=== PATIENT | female | born 1940 | race Caucasian/White ===

== ENCOUNTER 2022-09-29 10:27 | Inpatient (IN) | payer MEDICARE, OTHER, SELFPAY ==
--- NOTE | 2022-09-29 | DI.RAD_ITS ---
Exam(s) XR FEMUR RT EXAM: XR FEMUR RT CLINICAL HISTORY: complete femur xrs for hip fx sx. TECHNIQUE: 2D digital imaging was performed. AP and lateral views COMPARISON: CR,XR XR PELVIS AP from 09/29/2022 FINDINGS: BONES: Comminuted intertrochanteric fracture of the right femur with varus angulation. No additional fractures are seen distally in the femur. no bony destructive lesion is seen. Degenerative changes are noted at the knee. SOFT TISSUE: Normal. IMPRESSION: Comminuted intertrochanteric fracture of the right femur. DATA REPOSITORY: RADIATION DOSE DELIVERED:
--- NOTE | 2022-09-29 | DI.RAD_ITS ---
Exam(s) XR PORTABLE CHEST AP EXAM: XR PORTABLE CHEST AP CLINICAL HISTORY: Pre-op TECHNIQUE: 2D digital imaging was performed. COMPARISON: No exams were available for comparison FINDINGS: LUNGS: Clear. No pleural abnormality seen. HEART: Ultc-lp-ropnpycm enlargement of the cardiac silhouette. AORTA: Normal diameter. BONES: Degenerative changes, unremarkable for age. Soft tissues: Unremarkable. IMPRESSION: No acute findings. DATA REPOSITORY: RADIATION DOSE DELIVERED:
--- NOTE | 2022-09-29 10:59 | DI.RAD_ITS ---
Exam(s) XR PELVIS AP EXAM: XR PELVIS AP CLINICAL HISTORY: Rt hip fx. TECHNIQUE: 2D digital imaging was performed. COMPARISON: No exams were available for comparison FINDINGS: BONES: Acute intertrochanteric fracture of the right femur. The lesser trochanter is fractured as a separate component. There is some comminution at the greater trochanter. No additional fractures id entified.. No bony destructive lesion is seen. JOINTS: No dislocation present. Mild hip joint space narrowing is present. Acetabular spurring. SOFT TISSUE: Normal. IMPRESSION: Comminuted intertrochanteric fracture of the right femur. DATA REPOSITORY: RADIATION DOSE DELIVERED:
[2022-09-29 12:36] VITALS: BP 148/92; PULSE 111; RESP 18; TEMP 36.7; O2SAT 97
--- NOTE | 2022-09-29 13:47 | W.PM.HP.N ---
Date of service: 09/29/22 Time of Service: 13:47 Assessment and Plan Assessment and plan (1) Closed intertrochanteric fracture of right hip: Status: Acute Assessment and plan: Mechanical fall from standing height. Orthopedics consulted and have ordered xrays. Xray report from [facility] in chart. Pain control with scheduled IV acetaminophen, prn oxycodone. Repair planned for 729 tomorrow. (2) Atrial fibrillation: Assessment and plan: HOlding Eliquis for surgery. Cont metoprolol for rate control. Telemetry. (3) Essential hypertension: Status: Acute Assessment and plan: Holding amlodipine and losartan. Cont metoprolol. Monitor. (4) HLD (hyperlipidemia): Status: Acute Assessment and plan: Cont atorvastatin. (5) CKD (chronic kidney disease): Status: Chronic Assessment and plan: Likely acute on chronic. Pt has little appetite or thirst. LR at 100ml/hr for 1L. Creatinine in AM. (6) Discharge planning issues: Status: Acute Assessment and plan: DNR/DNI Anticipating SNF need post-op. History of Present Illness History of Present Illness Chief Complaint: Right hip pain Narrative: This is an 82 yo female with a PMH of chronic afib on Eliquis, HTN, HLD. On the evening of 09/28/22 she incurred a mechanical fall in her kitchen. She stated she fell more on her back than on her right side. She was then unable to bear wt. on the right hip. EMS called and she initially presented to [facility] for evaluation. There, she was found to have a right intertrochanteric femur fx. She denied hitting her head. No syncope. Covid, influenza and RSV were negative. Lytes normal. Creatinine 1.67. INR 1.03. WBC count 15.9. Hgb 12.5. Platelets 159. Presenting VS: BP 149/87 RR 20 T 36.9 HR 125. A dose of IV metoprolol given in the [facility] ED. Transferred to [facility] for surgical repaired that is planned for 729 on 09/30. Review of Systems All systems reviewed & are unremarkable except as noted in HPI and below PFSH All Active Problems (Updated 09/29/22 @ 14:52 by Matt Arellano MD) Discharge planning issues (Acute) CKD (chronic kidney disease) (Chronic) HLD (hyperlipidemia) (Acute) Essential hypertension (Acute) Closed intertrochanteric fracture of right hip (Acute 09/28/22) Medical History Atrial fibrillation Basal cell carcinoma Fracture of left ankle History of cardioversion Melanoma Surgical History Cataract extraction status, left eye Cataract extraction status, right eye H/O: hysterectomy History of left oophorectomy S/P bilateral breast lumpectomy Social History Smoking/Tobacco Use Status: Never Smoking risk assessment performed?: Yes Meds Allergies and Home Medications Allergies Allergy/AdvReac Type Severity Reaction Status Date / Time No Known Allergies Allergy Unverified 09/29/22 13:39 Home Medications Medication Instructions Recorded Confirmed Type allopurinol 300 mg tablet 300 mg PO DAILY 09/29/22 09/29/22 History amlodipine 5 mg tablet (Norvasc) 5 mg PO DAILY 09/29/22 09/29/22 History apixaban 2.5 mg tablet 2.5 mg PO BID 09/29/22 09/29/22 History atorvastatin 10 mg tablet (Lipitor) 10 mg PO QPM 09/29/22 09/29/22 History calcium carbonate 500 mg-vitamin 1 tab PO QDAY 09/29/22 09/29/22 History D3 10 mcg (400 unit) tablet (Calcium 500 With D) losartan 50 mg tablet (Cozaar) 50 mg PO DAILY 09/29/22 09/29/22 History metoprolol succinate 25 mg 25 mg PO DAILY 09/29/22 09/29/22 History tablet,extended release 24 hr multivit with 1 tab PO QDAY 09/29/22 09/29/22 History oqyiuiet-urzv-GA-lutein 8 mg iron-400 mcg-300 mcg tablet (Centrum Silver Women) Exam Narrative Exam Narrative: Pleasant 82 yo female. Conversant. Const General: cooperative and no acute distress Nutritional Appearance: overweight Orientation: alert and oriented x3 Eyes General: appearance normal, both eyes and all related structures Sclera: sclerae normal Resp Effort & Inspection: normal respiratory effort Auscultation: clear to auscultation bilaterally Cardio Rate: tachycardic Rhythm: abnormal rhythm irregularly irregular GI Inspection: non-distended Palpation: soft and nontender Skin General skin exam: no rashes or lesions noted Neuro General: no focal motor deficits (R hip with limited motion d/t pain. ) Cranial Nerves: facial strength normal Cognition: normal cognition Speech: speech normal Extrem General: no pedal edema and no calf tenderness Right lower extremity: hip/thigh (Right LE exteranlly rotated and forshortened. ) Psych Appearance: grossly normal Mental Status: mental status grossly normal Speech and Movement: speech and movement normal Mood: congruent mood Affect: normal affect Results Last Vital Signs Temp 36.7 C 09/29/22 12:36 Pulse 111 H 09/29/22 12:36 Resp 18 09/29/22 12:36 BP 148/92 H 09/29/22 12:36 Pulse Ox 97 09/29/22 12:36
[2022-09-29] MEDS: ACETAMINOPHEN 1,000 MG/100 ML BTL 400 MG IVPB ×2 (13:56→22:25)
[2022-09-29] MEDS: Metoprolol CR 25 MG TABCR PO (13:56)
[2022-09-29 14:36] VITALS: PULSE 103
[2022-09-29 14:46] VITALS: BP 124/77; PULSE 90; RESP 17; TEMP 36.8; O2SAT 96
--- NOTE | 2022-09-29 15:23 | INITIAL_ITS ---
- If Service Date Differs Date of service: 09/29/22 Time of Service: 15:23 Care Management Initial Assess REASON FOR HOSPITALIZATION:: Right Femoral Intertrochanteric Fracture. PAST MEDICAL HISTORY/PAST SURGICAL HISTORY:: All Active Problems: Discharge planning issues (Acute), CKD (chronic kidney disease) (Chronic), HLD (hyperlipidemia) (Acute), Essential hypertension (Acute), and Closed intertrochanteric fracture of right hip (Acute 09/28/22). Medical History: Atrial fibrillation, Basal cell carcinoma, Fracture of left ankle, History of cardioversion, and Melanoma. Surgical History: Cataract extraction status, left eye, Cataract extraction status, right eye, H/O: hysterectomy, History of left oophorectomy, and. S/P bilateral breast lumpectomy. PREVIOUS FUNCTIONAL STATUS/SOCIAL/FAMILY SUPPORTS:: Val lives alone in an apartment. Her daughter Abbi and her son-in-law live next door and are supportive of patient. Val has two other children but they do not live locally. Val drives and is independent at baseline. CURRENT FUNCTIONAL STATUS:: Val is lying in bed when CM comes to meet with her. Her daughter, Abbi, is present in the room. Val shares her evans rgery is scheduled for 7:30 on Friday morning. She further states she has heard a lot of good things about our orthopedic surgeons. ADVANCE DIRECTIVES:: Patient reports she has one on file with [facility]; daughter Abbi Olson is appointed as Health Care Agent. Has patient been provided with info about the portal/API?: Yes Did the patient sign up for the portal?: Yes CODE STATUS:: Full Code INSURANCE COVERAGE / FINANCIAL ISSUES:: [employer] and Medicare. CURRENT HOME/COMMUNITY SERVICES/EQUIPMENT:: No home/community services. Patient has hiking sticks, FWW, and wears eyeglasses. PRIMARY CARE PHYSICIAN:: Paty Canales MD ([facility]) POTENTIAL DISCHARGE NEEDS:: Follow up appointments with PCP, surgeon and potential home health services vs short term rehab. PATIENT/FAMILY EDUCATION NEEDS:: Review of discharge instructions including medications, limitations and follow up plan of care; discuss Ask Me Three and self management. ANTICIPATED BARRIERS TO DISCHARGE:: None identified at this time. TRANSPORTATION:: To be determined based on disposition. PLAN:: Val is undergoing surgery tomorrow morning to repair an intertrochanteric fracture of her right femur. Post surgery, PT will evaluate her ability to manage at home and will make recommendations for either new home health services or short-term rehab. CM will continue to follow.
[2022-09-29] MEDS: Lactated Ringers 1,000 ML 100 ML IV (15:36)
[2022-09-29 16:54] VITALS: PULSE 83
[2022-09-29] MEDS: oxyCODONE 5 MG TAB 2.5 MG PO (17:45)
--- NOTE | 2022-09-29 18:42 | DI.VRAD_ITS ---
PROCEDURE INFORMATION: Exam: XR Pelvis Exam date and time: 09/29/2022 5:59 PM Age: 82 years old Clinical indication: Other: Right hip FX TECHNIQUE: Imaging protocol: Radiologic exam of the pelvis. Views: 1 or 2 view. COMPARISON: No relevant prior studies available. FINDINGS: Bones/joints: Comminuted right femoral inter trochanteric fracture. No dislocation Soft tissues: Unremarkable. IMPRESSION: Comminuted right femoral intertrochanteric fracture without dislocation Dictated and Authenticated by: Seymour Goddard MD. Ordering:ISIDRO Ashton MD
--- NOTE | 2022-09-29 18:42 | DI.VRAD_ITS ---
PROCEDURE INFORMATION: Exam: XR Right Femur Exam date and time: 09/29/2022 6:01 PM Age: 82 years old Clinical indication: Other: Right hip FX TECHNIQUE: Imaging protocol: Radiologic exam of the Right femur. Views: 2 views. COMPARISON: CR XR PELVIS AP 09/29/2022 5:59 PM FINDINGS: Bones/joints: Comminuted intertrochanteric fracture without dislocation. Distal femur and visualized knee are grossly intact. Severe degenerative changes in the right knee Soft tissues: Soft tissue swelling suspected IMPRESSION: Comminuted intertrochanteric fracture as noted without dislocation Dictated and Authenticated by: Seymour Goddard MD. Ordering:ISIDRO Ashton MD
--- NOTE | 2022-09-29 18:42 | DI.VRAD_ITS ---
PROCEDURE INFORMATION: Exam: XR Chest Exam date and time: 09/29/2022 6:24 PM Age: 82 years old Clinical indication: Other: Pre op, right hip FX TECHNIQUE: Imaging protocol: Radiologic exam of the chest. Views: 1 view. COMPARISON: No relevant prior studies available. FINDINGS: Lungs: Chronic interstitial prominence. No consolidation. Pleural spaces: No pleural effusion. No pneumothorax. Heart/Mediastinum: Moderate cardiomegaly. Bones/joints: Unremarkable. IMPRESSION: No acute findings. Moderate cardiomegaly Dictated and Authenticated by: Seymour Goddard MD. Ordering:TOSHA Gutierrez MD
[2022-09-29 19:40] VITALS: PULSE 97
[2022-09-29] MEDS: Ondansetron 4 MG/2 ML VIAL IVP (20:28)
[2022-09-29] MEDS: MORPHine 2 MG/ML SYR IVP (20:29)
[2022-09-29] MEDS: Normal Saline Flush 10 ML SYR (21:31)
[2022-09-29 23:21] VITALS: BP 123/73; PULSE 95; RESP 18; TEMP 36.7; O2SAT 97
[2022-09-30] VITALS (19 sets, daily range): BP systolic 105–149; BP diastolic 63–81; PULSE 57–107; RESP 11–18; TEMP 35.5–37.1; O2SAT 93–98; BMI 30.4
[2022-09-30] MEDS: Ondansetron 4 MG/2 ML VIAL IVP ×3 (02:29→17:42)
[2022-09-30] MEDS: MORPHine 2 MG/ML SYR IVP (02:29)
[2022-09-30] MEDS: Normal Saline Flush 10 ML SYR ×2 (02:30→13:19)
[2022-09-30 03:11] LABS: Bilirubin Negative (Negative); Blood Negative (Negative); Clarity Clear (Clear); Glucose Negative (Negative); Ketones Negative (Negative); Leukocyte Esterase Negative (Negative); Nitrite Negative (Negative); Specific Gravity >= 1.030 (1.005-1.025); Urobilinogen 0.2 EU/dL (Up TO 0.2)
[2022-09-30] MEDS: Lactated Ringers 1,000 ML 100 ML IV ×2 (05:11→18:06)
[2022-09-30] MEDS: ACETAMINOPHEN 1,000 MG/100 ML BTL 400 MG IVPB (06:26)
[2022-09-30 06:28] LABS: Abs Immature Grans 0.02 10^3/uL (0.0-0.06); Absolute Basophil Count 0.02 10^3/uL (0.0-0.2); Absolute Lymphocyte Count 1.77 10^3/uL (1.2-3.4); Absolute Neutrophil Count 6.42 10^3/uL (1.2-6.7); Basophils % 0.2; HCT 29.9 % (36.0-46.0); HGB 9.9 g/dL (11.2-15.7); Immature Grans % 0.2; Lymphocytes % 19.8; MCH 31.1 pg (27.0-33.0); MCHC 33.1 % (32.0-36.0); MCV 94 fL (80-95); Monocytes % 7.8; Platelet Count 162 10^3/uL (130-400); RBC 3.18 10^6/uL (3.93-5.22); RDW 14.9 % (11.7-14.6); RDW-SD 51.5 fL; WBC 8.93 10^3/uL (4.4-10.8)
[2022-09-30 06:47] LABS: ALT 17 U/L (14-59); AST 20 U/L (15-37); Albumin 2.9 g/dL (3.4-5.0); Alkaline Phosphatase 76 U/L (46-116); Anion Gap 3.8 mmol/L (3-11); BUN 24 mg/dL (7-18); Bilirubin, Total 0.5 mg/dL (0.2-1.0); CO2 30.2 mmol/L (21.0-32.0); CREATININE 1.5 mg/dL (0.55-1.02); Calcium 8.3 mg/dL (8.5-10.1); Chloride 106 mmol/L (98-107); Estimated GFR 34.79 (mL/min/1.73m2); Glucose 114 mg/dL (74-106); Magnesium 1.5 mg/dL (1.8-2.4); Potassium 3.8 mmol/L (3.5-5.1); Sodium 140 mmol/L (136-145); Total Protein 5.8 g/dL (6.4-8.2)
--- NOTE | 2022-09-30 06:48 | ANES.PREOP_ITS ---
General Info Date of Service Date Performed: 09/30/22 Height: 5 ft 1 in Weight: 73.1 kg Body Mass Index (BMI): 30.4 Surgical Procedure: Operation Date: 09/30/22 08:00 Proposed Procedure Side Surgeon p Hip TFNA Right Poli Rai MD Meds Allergies and Home Medications Allergies Allergy/AdvReac Type Severity Reaction Status Date / Time No Known Allergies Allergy Unverified 09/29/22 13:39 Home Medication Medication Instructions Recorded allopurinol 300 mg tablet 300 mg PO DAILY 09/29/22 amlodipine 5 mg tablet (Norvasc) 5 mg PO DAILY 09/29/22 apixaban 2.5 mg tablet 2.5 mg PO BID 09/29/22 atorvastatin 10 mg tablet (Lipitor) 10 mg PO QPM 09/29/22 calcium carbonate 500 mg-vitamin 1 tab PO QDAY 09/29/22 D3 10 mcg (400 unit) tablet (Calcium 500 With D) losartan 50 mg tablet (Cozaar) 50 mg PO DAILY 09/29/22 metoprolol succinate 25 mg 25 mg PO DAILY 09/29/22 tablet,extended release 24 hr multivit with 1 tab PO QDAY 09/29/22 cxbjjcuw-xtzk-ED-lutein 8 mg iron-400 mcg-300 mcg tablet (Centrum Silver Women) Current Visit Medications: Current Medications Generic Name Dose Route Start Last Admin Trade Name Freq PRN Reason Stop Dose Admin Allopurinol 300 mg 09/30/22 08:30 Allopurinol 300 Mg Tab PO DAILY EDWARD Amlodipine Besylate 5 mg 09/30/22 08:30 Amlodipine 5 Mg Tab PO DAILY EDWARD Atorvastatin Calcium 10 mg 09/29/22 20:00 09/29/22 20:22 Atorvastatin 10 Mg Tab PO Not Given QPM EDWARD Dimethicone/Zinc Oxide 0 gm 09/29/22 10:27 Carlos Protect Cream 142 Gm Tube TP PRN PRN Acetaminophen 1,000 mg in 100 mls @ 400 mls/hr 09/29/22 14:00 09/30/22 06:26 Ofirmev IVPB 400 mls/hr Q8H EDWARD Administration Ringer's Solution 1,000 mls @ 100 mls/hr 09/30/22 06:45 IV INFUSION EDWARD Iron/Minerals/Multivitamins 1 tab 09/30/22 08:30 Multivitamin W/Minerals Tab PO DAILY EDWARD Metoprolol Succinate 25 mg 09/29/22 13:20 09/29/22 13:56 Metoprolol Cr 25 Mg Tabcr PO 25 mg DAILY EDWARD Administration Morphine Sulfate 2 mg 09/29/22 14:25 09/30/22 02:29 Morphine 2 Mg/Ml Syr IVP 2 mg Q2H PRN PRN Administration Ondansetron HCl 4 mg 09/29/22 10:38 09/30/22 02:29 Ondansetron 4 Mg/2 Ml Vial IVP 4 mg Q4H PRN PRN Administration Oxycodone HCl 2.5 mg 09/29/22 13:42 Oxycodone 5 Mg Tab PO Q6H PRN PRN Polyethylene Glycol 17 gm 09/29/22 10:32 Polyethylene Glycol 3350 17 Gm Packet PO DAILY PRN PRN Constipation PFSH Active Problems Active Problems: Problem Status Onset Code Discharge planning issues Z02.9 CKD (chronic kidney disease) N18.9 HLD (hyperlipidemia) E78.5 Essential hypertension I10 Closed intertrochanteric fracture of right hip 09/28/22 S72.141A Medical History Medical History Atrial fibrillation Basal cell carcinoma Fracture of left ankle History of cardioversion Melanoma Surgical History Surgical History Cataract extraction status, left eye Cataract extraction status, right eye H/O: hysterectomy History of left oophorectomy S/P bilateral breast lumpectomy Tobacco Smoking/Tobacco Use Status: Never Alcohol Alcohol Intake: current Alcohol intake frequency: holidays/special occasions only Substance Use Substance use: Never Vital Signs and Lab Results Vital Signs Most Recent Vital Signs in EMR: Most Recent Vital Signs Temp Pulse Resp BP Pulse Ox 36.8 C 92 H 18 125/75 97 09/30/22 03:35 09/30/22 03:35 09/30/22 03:35 09/30/22 03:35 09/30/22 03:35 Lab Results Result Diagrams: 09/30/22 06:05 09/30/22 06:05 Blood Type / Crossmatch: No Data to Display Complete Blood Count: White Blood Count 8.93 10^3/uL (4.4-10.8) 09/30/22 06:05 Red Blood Count 3.18 10^6/uL (3.93-5.22) L 09/30/22 06:05 Hemoglobin 9.9 g/dL (11.2-15.7) L 09/30/22 06:05 Hematocrit 29.9 % (36.0-46.0) L 09/30/22 06:05 Platelet Count 162 10^3/uL (130-400) 09/30/22 06:05 Complete Metabolic Panel: Sodium 140 mmol/L (136-145) 09/30/22 06:05 Potassium 3.8 mmol/L (3.5-5.1) 09/30/22 06:05 Chloride 106 mmol/L (98-107) 09/30/22 06:05 Carbon Dioxide 30.2 mmol/L (21.0-32.0) 09/30/22 06:05 BUN 24 mg/dL (7-18) H 09/30/22 06:05 Creatinine 1.5 mg/dL (0.55-1.02) H 09/30/22 06:05 Est GFR (CKD-EPI 2020) 34.79 (mL/min/1.73m2) 09/30/22 06:05 Magnesium 1.5 mg/dL (1.8-2.4) L 09/30/22 06:05 Calcium 8.3 mg/dL (8.5-10.1) L 09/30/22 06:05 Albumin 2.9 g/dL (3.4-5.0) L 09/30/22 06:05 Glucose 114 mg/dL (74-106) H 09/30/22 06:05 Liver Function Panel: Alanine Aminotransferase (ALT/SGPT) 17 U/L (14-59) 09/30/22 06: 05 Aspartate Amino Transf (AST/SGOT) 20 U/L (15-37) 09/30/22 06:05 Coagulation Panel: No Data to Display Cardiac Panel: No Data to Display Arterial Blood Gas: No Data to Display Venous Blood Gas: No Data to Display Pancreas Panel: No Data to Display Thyroid Panel: No Data to Display Infectious Disease: No Data to Display Blood Cultures: No Data to Display Toxicology Panel: No Data to Display Anesthesia Assessment and Plan Anesthesia History Personal History: No History of Anesthesia Complications Family History: No Family History of Anesthesia Complications Exercise Tolerance Exercise Tolerance: Metabolic Equivalents>4 Pertinent Negatives Pertinent Negatives: No Symptoms of GERD and No Major Pulmonary Symptoms or Complaints Cardiac & Pulmonary Exam Cardiac Exam: Other Pulmonary Exam: Clear Bilateral Breath Sounds Implantable Cardiac Device Does patient have a Pacemaker or an ICD?: No Airway Exam Known Difficult Airway: No Mallampati Class: 2 Mouth Opening: Normal (> 3cm) Thyromental Distance: Greater than 3 cm Neck Range of Motion: Full ROM Neck Circumference: Normal Teeth Condition: Normal Dentition ASA Classification ASA Score: ASA 3 Emergency Case?: No NPO Status NPO Status: NPO Clears >2 hours, Solids >8 hours Anesthesia Plan Resuscitation Status: DNR Modified During Perioperative Period Resuscitation Modifications: CPR Refused and Pt. Requests for Clinical Judgement to be Used Anesthesia Technique: General Anesthesia Airway Planned: LMA Monitors Used: Standard Monitors Preoperative Comments:: I spoke to patient and she has received her care in [place] and moved to [place] a year ago. She states her last echo was 2 years ago. She has never heard her heart pumps poorly or that she has any concerning valve disease. Discussed her DNR/DNI status and made adjustments per the consent for the perioperative period. Also discussed was increased risk as she is a fracture, has a-fib and an echo I have not seen and further kidney decline given current status.
[2022-09-30] MEDS: amLODIPine 5 MG TAB PO (07:17)
[2022-09-30] MEDS: Metoprolol CR 25 MG TABCR PO (07:22)
--- NOTE | 2022-09-30 07:30 | W.ORTHOCONSU ---
Date of service: 09/30/22 Time of Service: 07:18 History of Present Illness Narrative: Mechanical fall onto right side 2 days ago with eventual transfer from [facility] to [facility] yesterday afternoon. Isolated hip injury. No pre-existing ambulatory issues or hip dysfunction. Community ambulator with some limitations recently more difficult relating to right knee discomfort. Stable medical problems including atrial fibrillation and chronic kidney disease. Uses Eliquis antiplatelet last dose Friday morning, 48 hours ago. Consult Reason Displaced right hip fracture Assessment and Plan Assessment and plan (1) Closed intertrochanteric fracture of right hip: Status: Acute Assessment and plan: 82 year old female with displaced Right intertrochanteric hip fracture Medical admission and optimization for surgery. Hold Eliquis pending OR. Nutrition and hydration will be important postoperatively. SCDs and/or TEDs. NPO post midnight Decision to proceed with surgery: Right hip intramedullary nailing The risks, benefits, and alternatives were thoroughly discussed. Patient was counseled regarding pain management, expected postoperative course, and recovery timeline. All questions were answered. Informed consent was obtained. Patient and daughter agree and understand treatment plan. Discussed with primary medical team Review of Systems Narrative: Negative except noted as above PFSH All Active Problems Discharge planning issues (Acute) CKD (chronic kidney disease) (Chronic) HLD (hyperlipidemia) (Acute) Essential hypertension (Acute) Closed intertrochanteric fracture of right hip (Acute 09/28/22) Medical History Atrial fibrillation Basal cell carcinoma Fracture of left ankle History of cardioversion Melanoma Surgical History Cataract extraction status, left eye Cataract extraction status, right eye H/O: hysterectomy History of left oophorectomy S/P bilateral breast lumpectomy Social History Smoking/Tobacco Use Status: Never Smoking risk assessment performed?: Yes Alcohol Intake: current Alcohol Intake frequency: holidays/special occasions only Drug use: Never Exam Narrative Exam Narrative: Pleasant, comfortable resting in hospital bed Breathing comfortably on room air 2+ right radial pulse, regular rate, irregular rhythm Demonstrates active motor bilateral upper extremity and left lower extremity without deformity or bruising Resting in shortened external rotation position. Right hip isolated discomfort. Demonstrate intact motor below the knee sensation intact throughout. No skin breakdown. No signs of blood clot. Results Last Vital Signs Temp 98.1 F 09/29/22 12:36 Pulse 111 H 09/29/22 12:36 Resp 18 09/29/22 12:36 BP 148/92 H 09/29/22 12:36 Pulse Ox 97 09/29/22 12:36 Labs Result diagrams: 09/30/22 06:05 09/30/22 06:05 Imaging Imaging Studies: Pelvis, hip, and femur x-rays reviewed showing multipart, widely displaced basicervical?intertrochanteric type hip fracture
[2022-09-30] MEDS: ceFAZolin 2 GM/50 ML BAG 100 GM (08:00)
[2022-09-30] MEDS: Lactated Ringers 1,000 ML 30 ML IV (08:05)
[2022-09-30] MEDS: Bupivacaine 0.25% Pres-Free W/EPI 30 ML VIAL ×2 (08:32→08:55)
--- NOTE | 2022-09-30 08:52 | DI.RAD_ITS ---
Exam(s) XR HIP RT IN OR EXAM: XR HIP RT IN OR CLINICAL HISTORY: Closed intertrochanteric fracture of right hip. TECHNIQUE: 2D and realtime digital imaging was performed. COMPARISON: CR,XR XR FEMUR RT from 09/29/2022 FINDINGS: Fluoroscopy was provided in the OR for Dr. Rai. Hard copy images show placement of hardware for fi xation of the previously noted intertrochanteric fracture. The alignment appears satisfactory. Please see procedure note for details. Fluoro time: 63seconds RADIATION DOSE DELIVERED: brian Garcia=9.78 mGy
--- NOTE | 2022-09-30 09:20 | W.PM.OP ---
Date of service: 09/30/22 Time of Service: 07:43 Operative Note Operative Note DATE OF PROCEDURE: 09/30/22 PRE-OP DIAGNOSIS: Right hip intertrochanteric fracture POST-OP DIAGNOSIS: same PROCEDURE: Right hip intramedullary nail, CPT #64106 SURGEON: Poli Rai MEDICAL ONCOLOGIST: None None ANESTHESIA TYPE: Local By Surgeon and General LMA/ETT Refer to Anesthesia Record ESTIMATED BLOOD LOSS: 15 COMPLICATIONS: None Patient was transported to: PACU Patient's condition: stable Implants: Synthes TFNA [id number] 130 deg, 90 mm TFNA helical blade, 34 mm 5.0mm distal locking screw Indications: Please see medical record for details Procedure Description: In the operating room, general anesthesia was induced. The patient was transferred and positioned supine on the fracture table. All bony prominences were well padded. Pre-operative antibiotics were administered. C-arm fluoroscopy was used to confirm appropriate provisional fracture reduction with traction and internal rotation. The correct patient, procedure, and side of the procedure were all verified prior to incision. Local anesthetic with epinephrine was infiltrated about the planned start point as well as later about the lateral entry site for cephalomedullary and distal locking screws. C-arm fluoroscopy was used to locate the appropriate start point for the guide wire on the tip of the greater trochanter. This guide wire was advanced centrally down the proximal femur to the level of the lessor trochanter. Lateral images confirmed appropriate start point on the trochanter. Next the incision was extended about the guide wire to accommodate the nailing jig and this incision was carried down through the fascia and spread apart for ease of future instrument passage. The entry reamer was inserted along with the soft tissue protection tube and this reamer was used to open the proximal femur. The entry reamer, soft tissue protector, and guidewire were removed from the proximal femur. The appropriately selected nail was assembled on the back table to the jig and tested to ensure proper passage of the cephalomedullary drill. This implant was manually inserted into the proximal femur and advanced to the appropriate level for cephalomedullary fixation. Another incision was made laterally to accommodate the cephalomedullary aiming tube and trochar, which was advanced down to bone. The guide wire was then advanced into the femoral neck and adjusted on AP and lateral fluoroscopy until it was placed near subchondral bone in the center-center position in the femoral head. The depth gauge was used to measure the helical blade length accommodating for depth of guidewire insertion. Next, the drills were used to open the lateral cortex, drill over the wire, and the helical blade was advanced to the appropriate depth by gentle mallet blows. The set screw was engaged and backed off 180 degrees to allow for rotationally-controlled sliding and compression. Traction was released, and the fracture was compressed appropriately via the buttress and compression nut on the jig. The cephalomedullary aiming guide was removed. The distal locking screw guide was inserted through an extension of the cephalomedullary incision distally with the guide placed down on bone. The drill was used to drill for this static locking screw and measure the length. The appropriate length screw was then inserted bicortically. The jig was removed from the nail. Final AP and lateral fluoroscopic images were taken and confirmed appropriate fracture reduction and implant placement. All wounds were copiously irrigated. Deep layers were well approximated. Subcutaneous tissue was closed using 2-0 monocryl in a buried interrupted fashion. 3-0 Monocryl was used for subcuticular running closure. Skin glue was applied to all incisions. Incisions were covered with Mepilex Band-Aids. The patient awoke from anesthesia without complication and was transferred to the recovery room in stable condition.
--- NOTE | 2022-09-30 09:32 | PDOC.CMPRO ---
- If Service Date Differs Date of service: 09/30/22 Time of Service: 09:32 Care Management Progress Note S/O:Val was lying in bed when CM met with her. She was sleepy as she had just returned from surgery a short while earlier. Val stated that she was feeling Ok except for being sleepy. Her daughter Abbi was visiting at the time and discussed possible discharge plans with CM. Since Val has not been out of bed since surgery it is a bit premature to determine if she will require rehab or will be able to discharge home with HH PT or OP PT. CM will revisit tomorrow after the PT evaluatiuon has been completed. A: Val is an 82 year old woman admitted on 09/29/22 with a right femoral intertrochanteris fracture P:Val underwent surgery today morning to repair an intertrochanteric fracture of her right femur. Post surgery, PT will evaluate her ability to manage at home and will make recommendations for either new home health services or short-term rehab. CM will continue to follow and support discharge planning needs.
[2022-09-30] MEDS: HYDROmorphone 2 MG/ML SYR IVP ×2 (09:46→09:59)
[2022-09-30] MEDS: Normal Saline 10 ML VIAL (09:46)
--- NOTE | 2022-09-30 10:04 | W.PM.PROGNOT ---
Date of Service Date of service: 09/30/22 Time of Service: 09:28 Assessment and Plan Assessment and plan (1) Closed intertrochanteric fracture of right hip: Status: Acute Assessment and plan: 82-year-old female postop day #0 status post right Hip IMN Ordered?complete 24 hours postoperative antibiotics Discontinue Chance catheter postop day #1 Pain control-Multimodal Ordered?Physical therapy: Weightbearing as tolerated with assist device Ordered?Resume home Eliquis dose this evening as chemical DVT prophylaxis Continue mechanical DVT prophylaxis with SCDs and/or KENNEY hose Ordered right knee x-rays for tomorrow. Discharge when medically appropriate Follow-up with Dr. Rai outpatient [facility] orthopedics in 2 to 3 weeks. Separately, an appointment will be made with Dr. Posadas in about 2 months to discuss Right total knee arthroplasty. Appreciate medical management Subjective Subjective Interval history since last seen: Reasonly comfortable about the hip. Complains of right knee discomfort that has been present for a number of years worse, the past few months before even the fall. Sounds like steroid injection done a couple months ago by primary care provider. Exam Narrative Exam Narrative: Resting comfortably in PACU. Bilateral lower extremity leg lengths and rotation grossly equal Right hip dressing clean dry intact. Compartments soft. No significant edema or ecchymosis. Tolerates gentle hip range of motion without difficulty. Moderate discomfort somewhat medial distal thigh and about the knee with testing. Varus valgus Evelyn stable. No deformity significant edema or ecchymosis Objective Last Vital Signs Temp 98.2 F 09/30/22 07:14 Pulse 107 H 09/30/22 07:14 Resp 18 09/30/22 07:14 BP 149/81 H 09/30/22 07:14 Pulse Ox 96 09/30/22 07:14 Laboratory Results - last 24 hr 09/30/22 09/30/22 09/30/22 02:30 06:05 06:05 WBC 8.93 RBC 3.18 L Hgb 9.9 L Hct 29.9 L MCV 94 MCH 31.1 MCHC 33.1 RDW 14.9 H Plt Count 162 MPV 11.0 Immature Gran % 0.2 Neutrophils % 72.0 Lymphocytes % 19.8 Monocytes % 7.8 Eosinophils % 0.0 Basophils % 0.2 Nucleated RBC % 0.0 Absolute Neutrophils 6.42 Absolute Lymphocytes 1.77 Absolute Monocytes 0.70 Absolute Eosinophils 0.00 Absolute Basophils 0.02 Sodium 140 Potassium 3.8 Chloride 106 Carbon Dioxide 30.2 Anion Gap 3.8 BUN 24 H Creatinine 1.5 H Est GFR (CKD-EPI 2020) 34.79 Glucose 114 H Calcium 8.3 L Magnesium 1.5 L Total Bilirubin 0.5 AST 20 ALT 17 Alkaline Phosphatase 76 Total Protein 5.8 L Albumin 2.9 L Urine Color Yellow Urine Clarity Clear Urine pH 6.0 Ur Specific [place] >= 1.030 H Urine Protein Negative Urine Ketones Negative Urine Blood Negative Urine Nitrite Negative Urine Bilirubin Negative Urine Urobilinogen 0.2 Ur Leukocyte Esterase Negative Urine Glucose Negative
[2022-09-30] MEDS: Droperidol 5 MG/2 ML VIAL 0.625 MG IVP (10:33)
--- NOTE | 2022-09-30 11:41 | PT.INIE ---
PT Notes Visit Reasons: Right Femoral Intertrochanteric Fracture Inpatient Physical Therapy Evaluation Date: September 30, 2022. Referring Doctor: Dr. Poli Rai PT Orders:PT CONSULT: Right femoral intertrochanteric fracture status post intramedullary nailing Precautions: Weightbearing as tolerated with assistive device Patient Profile/Admitting Diagnosis: This is an 82 yo female with a PMH of chronic afib on Eliquis, HTN, HLD.? On the evening of 09/28/22 she incurred a mechanical fall in her kitchen.? She stated she fell more on her back than on her right side.? She was then unable to bear wt. on the right hip.? EMS called and she initially presented to [facility] for evaluation.? There, she was found to have a right intertrochanteric femur fx.? She denied hitting her head.? No syncope.? Covid, influenza and RSV were negative. Patient underwent intratrochanteric femur fracture fixation September 30, 2022 PMHX: PFSH All Active Problems?(Updated 09/29/22 @ 14:52 by Matt Arellano MD) Discharge planning issues (Acute) CKD (chronic kidney disease) (Chronic) HLD (hyperlipidemia) (Acute) Essential hypertension (Acute) Closed intertrochanteric fracture of right hip (Acute 09/28/22) Medical History? Atrial fibrillation Basal cell carcinoma Fracture of left ankle History of cardioversion Melanoma Surgical History? Cataract extraction status, left eye Cataract extraction status, right eye H/O: hysterectomy History of left oophorectomy S/P bilateral breast lumpectomy Social History/Home Situation: Lives in single level dwelling with 3 steps and railing upon entry. Has daughter who lives by and visits frequently. Patient states she was fully independent prior to her injury. Current Functional Limitations: Bed mobility, transfers, gait, ambulation, self-care ADLs Equipment Owned/DME: Front wheeled walker Subjective: Patient states she is been having cramping and spasming in the inner groin of the right hip. Also complaining of right knee pain. States that she is still quite nauseous following her surgery. Has not had any food to eat. States she has a history of right knee OA and is having an orthopedic work-up with Dr. Posadas in the near future. Objective: General Observation: Pneumatic stockings in place in supine head of bed 30 degrees. Catheter. Telemetry. IV left upper extremity. Mental Status: Alert and oriented x3 Pain: 3/10 in supine reclined position, 6/10 with transfer supine to sit. Vital Signs: Monitored via nursing ROM: Right Upper Extremity: Within functional limits Left Upper Extremity: Within functional limits Right Lower Extremity: Right hip: No active range of motion limited due to pain. Active assisted hip flexion 45 degrees in supine head of bed reclined 30 degrees. Active assistive abduction 15 degrees limited due to groin pain. Internal and external rotation not assessed. In sitting patient assumes approximately 75 to 80 degrees of flexion. Left knee flexion 100 active 110 active assisted with pain at end range. Extension lacks 5 degrees terminal extension. Ankle range of motion within functional limits Left Lower Extremity: Within functional limits throughout left hip knee and ankle Strength: Right Upper Extremity: Glenohumeral joint flexion, abduction, elbow flexion, extension 4/5. Good personnel clerks supervisor. Left Upper Extremity: Glenohumeral joint flexion, abduction, elbow flexion and extension 4/5. Good personnel clerks supervisor Right Lower Extremity: Patient is able to form volitional quad set right lower extremity with superior migration of patella noted. Hip flexion 3 -/5 with pain, quad 3+/5 minimal pain. Patient able to perform long arc quad in sitting to lacking 5 degrees of terminal extension. Hamstring 4 -/5. Hip AB duction and adduction not tested. Ankle dorsiflexion and plantar flexion 4/5 Left Lower Extremity: 4/5 throughout. Patient able to form straight leg raise with 0 degree lag. Sensation: Patient reports intact sensation light touch throughout bilateral lower extremities. Bed Mobility/Transfers: Supine?sit: Moderate assist x2 head of bed 60 degrees Supine to stand: Mod assist x2 to front wheeled walker with verbal cues for hand placement on walker and avoidance of using walker to assist him to stand position Stand to sit: Min assist x2 with verbal cues for hand placement on bed when transferring Sit to supine: Mod assist x2 Assistance required with right lower extremity positioning during all transfers. Patient did complain of increased nausea once assuming standing position. Gait: Not performed today. Patient did perform some gentle weight shift to her right lower extremity approximating nearly 50% body weight through right lower extremity prior to limitation due to pain. With use of front wheel walker patient was able to advance left lower extremity 2 inches. Verbal cues required for upper extremity usage to walker to assist with right hip pain. Balance: Static Sitting: Fair Dynamic Sitting: Fair Static Standing: Poor Dynamic Standing: Poor Special Tests: Mobility Limitations Standardized Measure [facility] AM-PAC 6 clicks Basic Mobility Inpatient Short Form: Raw Score: 11 CMS Score: 73% Informed Consent/Education: Patient instructed in purpose of PT consult and plan of care. Assessment: Patient is a 82 year old female referred to physical therapy services with the diagnosis of status post right femur fracture with IMN. Patient presents with clinical signs and symptoms consistent with admitting diagnosis, as demonstrated by the following impairment level findings: Joint mobility, motor function, muscle performance and range of motion associated with fracture. Impairments are contributing to the following functional limitations: 1. Decline in bed mobility skills 2. Decline transfer skills 3. Inability to safely ambulate 4. Increased risk for falls 5. Increase completion time for mobility ADL performance 6. Decline in stair negotiation skill Patient is assessed as a [] Low 27674 X Moderate 59631 [] High 99805 complexity based on the following: History: see above Examination: see above Presentation: evolving Decision Makin Goals: Goals X1 week 1. Supine-Sit SBA 2. Sit-Supine SBA 3. Sit-Stand SBA to FWW 4. Stand-Sit SBA from FWW 5. Bed-Chair SBA wth FWW 6. Chair-Bed SBA - with FWW 7. Gait 100' with FWW with SBA 8. Stairs 3 with railing and SBA Plan of Care/Treatment Plan: 1-2x/day, 7 days/week x 1 week. Plan of care has been reviewed with the UNIT COORDINATOR providing the service under Physical Therapy direction. Initiate Physical Therapy intervention for strengthening, bed mobility, transfers, gait, stairs, balance training, use of assistive device. DISCHARGE RECOMMENDATIONS: [] Home with no services [] [] Home with services [specify] [] Home with outpatient PT [] X SNF for continued rehabilitation [] Custodial Care [] [] SNF versus LTC based on ability to participate and progress [] TREATMENT CODE/TIME: 11229 IE 30 minutes 2:40-3:10 Thank you for this referral. Bran Conn PT, DPT Disclaimer: This note was created using [employer] voice recognition software. It was reviewed for major content. However, there may be multiple small discrepancies and errors due to the voice recognition aspects of the software.
[2022-09-30] MEDS: Acetaminophen 500 MG TAB 1000 MG PO ×2 (12:26→21:31)
[2022-09-30] MEDS: ceFAZolin 1 GM/50 ML BAG IVPB ×2 (13:13→21:30)
--- NOTE | 2022-09-30 13:23 | W.ANESPOSTOP ---
Postoperative Evaluation Date, Time and Location Date Performed: 09/30/22 Time Performed: 13:23 Patient Location: Med/Surg Vital Signs Most Recent Imported Vital Signs: Most Recent Vital Signs Temp Pulse Resp BP Pulse Ox 35.5 C L 89 18 116/76 94 09/30/22 12:02 09/30/22 12:02 09/30/22 12:02 09/30/22 12:02 09/30/22 12:02 Pain Score Most Recent Pain Score: Most Recent Pain Score Pain Level 3 09/30/22 12:26 Assessment Mental Status: Awake (Alert & Oriented to Patient Baseline) Airway and Respiratory Function: Patent airway with normal (patient baseline) respiratory exam Cardiovascular Function: Hemodynamically Stable Hydration Status: Adequately Hydrated Nausea & Vomiting: No Nausea or Vomiting Pain: Pain is tolerable per patient Peripheral Nerve Block: Patient did not receive a nerve block
[2022-09-30] MEDS: Methocarbamol 500 MG TAB PO (13:35)
[2022-09-30] MEDS: MAGNESIUM SULFATE 2 GM/50 ML BAG IVPB (14:03)
--- NOTE | 2022-09-30 14:46 | W.PM.PROGNOT ---
Date of Service Date of service: 09/30/22 Time of Service: 14:46 Subjective Subjective Patient reports: tolerating liquids well (Poor appetite), nausea and afebrile; denies vomiting or shortness of breath Interval history since last seen: Requests a muscle relaxant for RLE. Exam Narrative Exam Narrative: Resting comfortably in PACU. Bilateral lower extremity leg lengths and rotation grossly equal Right hip dressing clean dry intact. Compartments soft. No significant edema or ecchymosis. Tolerates gentle hip range of motion without difficulty. Moderate discomfort somewhat medial distal thigh and about the knee with testing. Varus valgus Evelyn stable. No deformity significant edema or ecchymosis Objective Last Vital Signs Temp 35.5 C L 09/30/22 12:02 Pulse 89 09/30/22 12:02 Resp 18 09/30/22 12:02 BP 116/76 09/30/22 12:02 Pulse Ox 94 09/30/22 12:02 Laboratory Results - last 24 hr 09/30/22 09/30/22 09/30/22 02:30 06:05 06:05 WBC 8.93 RBC 3.18 L Hgb 9.9 L Hct 29.9 L MCV 94 MCH 31.1 MCHC 33.1 RDW 14.9 H Plt Count 162 MPV 11.0 Immature Gran % 0.2 Neutrophils % 72.0 Lymphocytes % 19.8 Monocytes % 7.8 Eosinophils % 0.0 Basophils % 0.2 Nucleated RBC % 0.0 Absolute Neutrophils 6.42 Absolute Lymphocytes 1.77 Absolute Monocytes 0.70 Absolute Eosinophils 0.00 Absolute Basophils 0.02 Sodium 140 Potassium 3.8 Chloride 106 Carbon Dioxide 30.2 Anion Gap 3.8 BUN 24 H Creatinine 1.5 H Est GFR (CKD-EPI 2020) 34.79 Glucose 114 H Calcium 8.3 L Magnesium 1.5 L Total Bilirubin 0.5 AST 20 ALT 17 Alkaline Phosphatase 76 Total Protein 5.8 L Albumin 2.9 L Urine Color Yellow Urine Clarity Clear Urine pH 6.0 Ur Specific [place] >= 1.030 H Urine Protein Negative Urine Ketones Negative Urine Blood Negative Urine Nitrite Negative Urine Bilirubin Negative Urine Urobilinogen 0.2 Ur Leukocyte Esterase Negative Urine Glucose Negative
--- NOTE | 2022-09-30 14:54 | W.PM.PROGNOT ---
Date of Service Date of service: 09/30/22 Time of Service: 14:54 Subjective Subjective Patient reports: tolerating liquids well (Poor appetite), nausea (Mild) and afebrile; denies vomiting or shortness of breath Exam Narrative Exam Narrative: Pleasant 82 yo female. Appears tired but is conversant. Const General: cooperative and no acute distress Nutritional Appearance: overweight Orientation: oriented x3 Eyes General: appearance normal, both eyes and all related structures Sclera: sclerae normal Resp Effort & Inspection: normal respiratory effort Auscultation: clear to auscultation bilaterally Cardio Rate: tachycardic Rhythm: abnormal rhythm irregularly irregular GI Inspection: non-distended Palpation: soft and nontender Skin General skin exam: no rashes or lesions noted Neuro General: no focal motor deficits (R hip with limited motion d/t pain. ) Cranial Nerves: facial strength normal Cognition: normal cognition Speech: speech normal Extrem General: no pedal edema and no calf tenderness Right lower extremity: hip/thigh (Surgical bandage in place on R proximal lateral thigh. ) Psych Appearance: grossly normal Mental Status: mental status grossly normal Speech and Movement: speech and movement normal Mood: congruent mood Affect: normal affect Objective Last Vital Signs Temp 35.5 C L 09/30/22 12:02 Pulse 89 09/30/22 12:02 Resp 18 09/30/22 12:02 BP 116/76 09/30/22 12:02 Pulse Ox 94 09/30/22 12:02 Laboratory Results - last 24 hr 09/30/22 09/30/22 09/30/22 02:30 06:05 06:05 WBC 8.93 RBC 3.18 L Hgb 9.9 L Hct 29.9 L MCV 94 MCH 31.1 MCHC 33.1 RDW 14.9 H Plt Count 162 MPV 11.0 Immature Gran % 0.2 Neutrophils % 72.0 Lymphocytes % 19.8 Monocytes % 7.8 Eosinophils % 0.0 Basophils % 0.2 Nucleated RBC % 0.0 Absolute Neutrophils 6.42 Absolute Lymphocytes 1.77 Absolute Monocytes 0.70 Absolute Eosinophils 0.00 Absolute Basophils 0.02 Sodium 140 Potassium 3.8 Chloride 106 Carbon Dioxide 30.2 Anion Gap 3.8 BUN 24 H Creatinine 1.5 H Est GFR (CKD-EPI 2020) 34.79 Glucose 114 H Calcium 8.3 L Magnesium 1.5 L Total Bilirubin 0.5 AST 20 ALT 17 Alkaline Phosphatase 76 Total Protein 5.8 L Albumin 2.9 L Urine Color Yellow Urine Clarity Clear Urine pH 6.0 Ur Specific [place] >= 1.030 H Urine Protein Negative Urine Ketones Negative Urine Blood Negative Urine Nitrite Negative Urine Bilirubin Negative Urine Urobilinogen 0.2 Ur Leukocyte Esterase Negative Urine Glucose Negative
[2022-09-30] MEDS: traMADol 50 MG TAB PO ×2 (17:42→23:31)
[2022-09-30] MEDS: Apixaban 2.5 MG TAB PO (19:11)
[2022-09-30] MEDS: Atorvastatin 10 MG TAB PO (19:11)
[2022-09-30] MEDS: Normal Saline Flush 10 ML SYR IVP (21:31)
[2022-09-30] MEDS: Baclofen 10 MG TAB PO (22:21)
[2022-10-01] VITALS (10 sets, daily range): BP systolic 103–135; BP diastolic 65–81; PULSE 67–128; RESP 16–21; TEMP 36–37.3; O2SAT 93–98
[2022-10-01] MEDS: Lactated Ringers 1,000 ML 100 ML IV (04:29)
[2022-10-01] MEDS: Baclofen 10 MG TAB PO ×2 (06:44→12:30)
[2022-10-01] MEDS: traMADol 50 MG TAB PO ×2 (06:44→12:30)
[2022-10-01] MEDS: ceFAZolin 1 GM/50 ML BAG IVPB (06:44)
[2022-10-01] MEDS: amLODIPine 5 MG TAB PO (07:56)
[2022-10-01] MEDS: Metoprolol CR 25 MG TABCR PO (07:56)
[2022-10-01] MEDS: Calcium 600mg/Vit D 200U TAB 1 TAB PO (07:56)
[2022-10-01] MEDS: Acetaminophen 500 MG TAB 1000 MG PO ×2 (07:56→17:01)
[2022-10-01] MEDS: Multivitamin w/Minerals TAB 1 TAB PO (07:56)
[2022-10-01] MEDS: Allopurinol 300 MG TAB PO (07:56)
[2022-10-01] MEDS: Apixaban 2.5 MG TAB PO ×2 (07:56→20:38)
--- NOTE | 2022-10-01 08:19 | PTTR_ITS ---
Date of service: 10/01/22 Time of Service: 07:35 PT Notes Visit Reasons: Right Femoral Intertrochanteric Fracture Inpatient Physical Therapy Treatment Note [facility] Date: 10/01/2022 PRECAUTIONS: Fall, activity as tolerated, WBAT R LE SUBJECTIVE: Vla is pleasant and agreeable to participating in PT. She reports that she is not having pain in R hip while at rest. OBJECTIVE: PAIN: Patient c/o R LE pain with gait training and ther ex BED MOBILITY/TRANSFERS Sit-supine: Min A with HOB flat and use of leg perioperative manager with cueing Sit-stand: CGA x2 with cueing for safety Stand-sit: CGA with cueing for safety GAIT Assistive Device: FWW Weight bearing: WBAT R LE Assist: CGA + Min A in a.m.; CGA - SBA in p.m. Distance: 6' in a.m.; 15' in p.m. Deviation: Patient c/o slight dizziness, assist with R foot advancement (a.m. only), cueing for gait pattern (improving in p.m.), assist with FWW management (a.m. only) VITALS: Per nursing report via telemetry reading, patient's HR reached a high of 162 bpm with gait training in a.m.. THEREX: Patient was instructed in a LE strengthening program, completed in a seated position in a.m., to include: ankle pumps, heel raises, LAQ, hip flexion and hip abduction. In p.m., patient was instructed in a LE strengthening and stabilization program, completed in a long-sitting position, to include: ankle pumps, quad sets, glute sets, heel slides and hip abduction. Patient requires assist with R LE for proper exercise completion. ASSESSMENT: Patient tolerated session with complaint of increased fatigue and increased pain with ther ex and gait training. She requires significant encouragement, as well as cueing and assist with gait training in a.m., likely due to anxiety. In p.m., patient demonstrates improved gait mechanics, although continues to demonstrate limited activity tolerance. PLAN: Continue with LE strengthening, gait training and transfer training for improved mobility. TREATMENT CODE/TIME: Session 1: 27 minutes; 91995, [id number] (07:35) Session 2: 32 minutes; 06852, [id number] (13:07)
--- NOTE | 2022-10-01 10:18 | PDOC.CMPRO ---
- If Service Date Differs Date of service: 10/01/22 Time of Service: 10:18 Care Management Progress Note S/O: Silvia was sitting up in a chair when CM met with her.She was in good spirits and shared that she had worked with PT and felt that she would benefit from short term rehab. CM discussed this with Silvia and her daughter Abbi and they provided CM with a list of facilities in both [place] and [place]. Referrals were sent to:[facility], [facility], [facility], [facility], [facility], [facility], [facility] and [facility], [facility]. A: Iesha is an 82 year old woman admitted on with a fractured femur P: Val underwent surgery yesterday to repair an intertrochanteric fracture of her right femur. Post surgery she had a PT evaluation and they recommended short-term rehab. CM discussed with patient and daughter Abbi and referrals were sent. CM will continue to follow and support discharge planning needs.
[2022-10-01 12:16] LABS: Anion Gap 8.1 mmol/L (3-11); BUN 27 mg/dL (7-18); CO2 27.9 mmol/L (21.0-32.0); CREATININE 1.6 mg/dL (0.55-1.02); Chloride 103 mmol/L (98-107); Glucose 115 mg/dL (74-106); Potassium 3.9 mmol/L (3.5-5.1); Sodium 139 mmol/L (136-145)
--- NOTE | 2022-10-01 13:03 | W.PM.PROGNOT ---
Date of Service Date of service: 10/01/22 Time of Service: 13:03 Assessment and Plan Assessment and plan (1) Closed intertrochanteric fracture of right hip: Status: Acute Assessment and plan: 82-year-old female postop day #1 status post right Hip IMN Discontinue Chance catheter, IV fluid, and changed as needed acetaminophen to scheduled for the next 36 hours Canceled right knee x-rays for today, she will get these as an oupatient at follow-up. Discharge when medically appropriate Follow-up with Dr. Rai outpatient [facility] orthopedics in 2 to 3 weeks. She has an appointment will be made with Dr. Posadas in about 2 months to discuss Right total knee arthroplasty. Appreciate medical management Subjective Subjective Interval history since last seen: Reasonly comfortable about the hip. Knee pain is better today. She would like to address this with Dr. Posadas at her visit in November. Able to transfer to a chair. She has not attempted to walk any distance at this point. She is much more comfortable than yesterday. Exam Extrem Other: Brief exam of the right hip today shows that the Mepilex dressings are in place without drainage. Assessment has been internal and external rotation without deformity. Positive thigh pain with manipulation of the hip. He is able to actively flex her hip out of the chair in a seated position with minimal pain. Objective Last Vital Signs Temp 97.7 F 10/01/22 12:18 Pulse 84 10/01/22 12:18 Resp 16 10/01/22 12:18 BP 124/70 10/01/22 12:18 Pulse Ox 98 10/01/22 12:18 Laboratory Results - last 24 hr 10/01/22 11:25 Sodium 139 Potassium 3.9 Chloride 103 Carbon Dioxide 27.9 Anion Gap 8.1 BUN 27 H Creatinine 1.6 H Est GFR (CKD-EPI 2020) 32.20 Glucose 115 H Calcium 9.0 Magnesium 2.0
--- NOTE | 2022-10-01 15:59 | W.PM.PROGNOT ---
Date of Service Date of service: 10/01/22 Time of Service: 15:59 Assessment and Plan Assessment and plan (1) Closed intertrochanteric fracture of right hip: Status: Acute Assessment and plan: Post op day #1 Up in chair. Working with PT; recommending SNF for further rehab efforts. Pain control. Baclofen prn for muscle spasms. Nightly Mg. (2) Atrial fibrillation: Assessment and plan: Eliquis restarted. Cont metoprolol for rate control. Consider increasing dosage if rate continues to elevate significantly with activity. Telemetry. (3) Essential hypertension: Status: Acute Assessment and plan: Holding amlodipine and losartan. Restart when / if BP is adequate to tolerate. Cont metoprolol. Monitor. (4) HLD (hyperlipidemia): Status: Acute Assessment and plan: Cont atorvastatin. (5) CKD (chronic kidney disease): Status: Chronic Assessment and plan: Likely acute on chronic. Pt has little appetite or thirst. Cr 1.5 > 1.6 Monitor (6) Discharge planning issues: Status: Acute Assessment and plan: DNR/DNI Anticipating SNF need post-op. Subjective Subjective Patient reports: no new complaints, feels better, pain is less and afebrile; denies nausea or vomiting Interval history since last seen: Working with PT; requiring fairly significant prompting / motivation. Exam Narrative Exam Narrative: Pleasant 82 yo female. Sitting in recliner. Const General: cooperative and no acute distress Nutritional Appearance: overweight Orientation: oriented x3 Eyes General: appearance normal, both eyes and all related structures Sclera: sclerae normal Resp Effort & Inspection: normal respiratory effort Auscultation: clear to auscultation bilaterally Cardio Rate: tachycardic Rhythm: abnormal rhythm irregularly irregular GI Inspection: non-distended Palpation: soft and nontender Skin General skin exam: no rashes or lesions noted Neuro General: no focal motor deficits (R hip with limited motion d/t pain. ) Cranial Nerves: facial strength normal Cognition: normal cognition Speech: speech normal Extrem General: no pedal edema and no calf tenderness Right lower extremity: hip/thigh (Surgical bandage in place on R proximal lateral thigh. ) Psych Appearance: grossly normal Mental Status: mental status grossly normal Speech and Movement: speech and movement normal Mood: congruent mood Affect: normal affect Objective Last Vital Signs Temp 36.5 C 10/01/22 12:18 Pulse 84 10/01/22 12:18 Resp 16 10/01/22 12:18 BP 124/70 10/01/22 12:18 Pulse Ox 98 10/01/22 12:18 Laboratory Results - last 24 hr 10/01/22 11:25 Sodium 139 Potassium 3.9 Chloride 103 Carbon Dioxide 27.9 Anion Gap 8.1 BUN 27 H Creatinine 1.6 H Est GFR (CKD-EPI 2020) 32.20 Glucose 115 H Calcium 9.0 Magnesium 2.0
[2022-10-01] MEDS: Atorvastatin 10 MG TAB PO (20:38)
[2022-10-01] MEDS: Normal Saline Flush 10 ML SYR IVP (20:39)
[2022-10-01] MEDS: Magnesium Oxide 400 MG TAB PO (23:00)
[2022-10-02] VITALS (10 sets, daily range): BP systolic 110–133; BP diastolic 67–78; PULSE 81–101; RESP 15–19; TEMP 36.2–37.5; O2SAT 93–96
[2022-10-02] MEDS: Acetaminophen 500 MG TAB 1000 MG PO ×4 (00:08→23:15)
[2022-10-02 07:37] LABS: Abs Immature Grans 0.03 10^3/uL (0.0-0.06); Absolute Basophil Count 0.02 10^3/uL (0.0-0.2); Absolute Eosinophil Count 0.01 10^3/uL (0.0-0.7); Absolute Lymphocyte Count 1.77 10^3/uL (1.2-3.4); Absolute Monocyte Count 0.53 10^3/uL (0.1-0.8); Absolute Neutrophil Count 5.84 10^3/uL (1.2-6.7); Basophils % 0.2; Eosinophils % 0.1; HCT 27.2 % (36.0-46.0); HGB 8.9 g/dL (11.2-15.7); Immature Grans % 0.4; Lymphocytes % 21.6; MCH 30.8 pg (27.0-33.0); MCHC 32.7 % (32.0-36.0); MCV 94 fL (80-95); MPV 10.8 fL (8.0-11.0); Monocytes % 6.5; Neutrophils % 71.2; Platelet Count 180 10^3/uL (130-400); RBC 2.89 10^6/uL (3.93-5.22); RDW 14.6 % (11.7-14.6); RDW-SD 50.6 fL
[2022-10-02 07:49] LABS: Anion Gap 7.1 mmol/L (3-11); BUN 27 mg/dL (7-18); CO2 29.9 mmol/L (21.0-32.0); CREATININE 1.4 mg/dL (0.55-1.02); Calcium 8.7 mg/dL (8.5-10.1); Chloride 108 mmol/L (98-107); Glucose 95 mg/dL (74-106); Potassium 3.9 mmol/L (3.5-5.1); Sodium 145 mmol/L (136-145)
[2022-10-02] MEDS: traMADol 50 MG TAB PO ×2 (08:25→23:15)
[2022-10-02] MEDS: Baclofen 10 MG TAB PO (08:25)
[2022-10-02] MEDS: Allopurinol 300 MG TAB PO (08:25)
[2022-10-02] MEDS: Metoprolol CR 25 MG TABCR PO (08:26)
[2022-10-02] MEDS: Calcium 600mg/Vit D 200U TAB 1 TAB PO (08:26)
[2022-10-02] MEDS: amLODIPine 5 MG TAB PO (08:26)
[2022-10-02] MEDS: Multivitamin w/Minerals TAB 1 TAB PO (08:26)
[2022-10-02] MEDS: Apixaban 2.5 MG TAB PO ×2 (08:26→20:57)
--- NOTE | 2022-10-02 09:23 | PT.INTREAT ---
Date of service: 10/02/22 Time of Service: 08:38 PT Notes Visit Reasons: Right Femoral Intertrochanteric Fracture Inpatient Physical Therapy Treatment Note [facility] Date: 10/02/2022 PRECAUTIONS: Fall, activity as tolerated, WBAT R LE SUBJECTIVE: Val is pleasant and agreeable to participating in PT. She reports that she is having spasms in her R LE this morning. OBJECTIVE: PAIN: Patient c/o R LE pain with gait training and ther ex BED MOBILITY/TRANSFERS Sit-supine: SBA with HOB flat and use of leg linotype worker Sit-stand: SBA Stand-sit: SBA GAIT Assistive Device: FWW Weight bearing: WBAT R LE Assist: SBA Distance: 50' in a.m.; 10' + 20' in p.m. Deviation: Patient c/o slight dizziness, step-through gait pattern, assist with continuous FWW advancement THEREX: Patient was instructed in a LE strengthening and stabilization program, completed in both seated and long-sitting positions in a.m. and in supine position in p.m., to include: ankle pumps, quad sets, glute sets, heel slides, LAQ, hip flexion and hip abduction. She requires assist of R LE for exercise completion due to pain and weakness. TOILETING: Patient toileted with assist (height of toilet too high, patient cannot touch the floor) ASSESSMENT: Patient tolerated session with complaint of increased fatigue and increased pain with ther ex and gait training. Patient demonstrates improved gait mechanics, utilizing step-through gait pattern and tolerating a progression in gait distance. PLAN: Continue with LE strengthening, gait training and transfer training for improved mobility. TREATMENT CODE/TIME: Session 1: 38 minutes; 08555 x2, 25249 (08:38) Session 2: 37 minutes; 46767, [id number] (12:47)
--- NOTE | 2022-10-02 09:53 | CMPROGNOTE_ITS ---
- If Service Date Differs Date of service: 10/02/22 Time of Service: 09:53 Care Management Progress Note S/O: Silvia was sitting up in a chair when CM met with her. She was smiling and in good spirits and engaged easily with CM. She shared that she worked again with PT and felt she had done pretty well. PT confirmed this. She did state she had a little pain but that it wasn't too bad. Silvia received a bed offer from [facility] in [place], [place] today. She and her daughter discussed the offer and accepted it. Abbi will transport her via private vehicle tomorrow, late morning. A: Silvia is an 82 year old woman admitted on with a fractured femur P: Val has been offered a bed at [facility] in [place], [place] and has accepted to offer. She will transport tomorrow morning with her daughter Abbi and will follow up with the facility providers and plan of care. CM will continue to follow and support discharge planning needs.
--- NOTE | 2022-10-02 18:50 | W.PM.PROGNOT ---
Date of Service Date of service: 10/02/22 Time of Service: 18:51 Assessment and Plan Assessment and plan (1) Closed intertrochanteric fracture of right hip: Status: Acute Assessment and plan: Post op day #2 Working with PT Taking acetaminophen scheduled and prn tramadol for pain control. Nightly Mg. (2) Atrial fibrillation: Assessment and plan: Eliquis restarted. Cont metoprolol for rate control. HR had been elevating with ambulation. Did not do so today. Telemetry. (3) Essential hypertension: Status: Acute Assessment and plan: Holding amlodipine and losartan. Restart when / if BP is adequate to tolerate. Cont metoprolol. Monitor. (4) HLD (hyperlipidemia): Status: Acute Assessment and plan: Cont atorvastatin. (5) CKD (chronic kidney disease): Status: Chronic Assessment and plan: Likely acute on chronic. Pt has little appetite or thirst. Cr 1.5 > 1.6 >1.4 Monitor (6) Discharge planning issues: Status: Acute Assessment and plan: DNR/DNI Anticipating SNF need post-op. Subjective Subjective Patient reports: no new complaints, feels better, pain is less and tolerating a regular diet; denies nausea or vomiting Interval history since last seen: Working with PT and showed improvement today. Exam Narrative Exam Narrative: Pleasant 82 yo female. Lying in bed. Daughter present. Const General: cooperative and no acute distress Nutritional Appearance: overweight Orientation: oriented x3 Eyes General: appearance normal, both eyes and all related structures Sclera: sclerae normal Resp Effort & Inspection: normal respiratory effort Auscultation: clear to auscultation bilaterally Cardio Rate: tachycardic Rhythm: abnormal rhythm irregularly irregular GI Inspection: non-distended Palpation: soft and nontender Skin General skin exam: no rashes or lesions noted Neuro General: no focal motor deficits (R hip with limited motion d/t pain. ) Cranial Nerves: facial strength normal Cognition: normal cognition Speech: speech normal Extrem General: no pedal edema and no calf tenderness Right lower extremity: hip/thigh (Surgical bandage in place on R proximal lateral thigh. ) Psych Appearance: grossly normal Mental Status: mental status grossly normal Speech and Movement: speech and movement normal Mood: congruent mood Affect: normal affect Objective Last Vital Signs Temp 36.4 C L 10/02/22 15:45 Pulse 84 10/02/22 15:45 Resp 19 10/02/22 15:45 BP 133/76 10/02/22 15:45 Pulse Ox 93 10/02/22 15:45 Laboratory Results - last 24 hr 10/02/22 10/02/22 06:50 06:50 WBC 8.20 RBC 2.89 L Hgb 8.9 L Hct 27.2 L MCV 94 MCH 30.8 MCHC 32.7 RDW 14.6 Plt Count 180 MPV 10.8 Immature Gran % 0.4 Neutrophils % 71.2 Lymphocytes % 21.6 Monocytes % 6.5 Eosinophils % 0.1 Basophils % 0.2 Nucleated RBC % 0.0 Absolute Neutrophils 5.84 Absolute Lymphocytes 1.77 Absolute Monocytes 0.53 Absolute Eosinophils 0.01 Absolute Basophils 0.02 Sodium 145 Potassium 3.9 Chloride 108 H Carbon Dioxide 29.9 Anion Gap 7.1 BUN 27 H Creatinine 1.4 H Est GFR (CKD-EPI 2020) 37.80 Glucose 95 Calcium 8.7
[2022-10-02] MEDS: Atorvastatin 10 MG TAB PO (20:57)
[2022-10-02] MEDS: Magnesium Oxide 400 MG TAB PO (23:14)
[2022-10-03] MEDS: Normal Saline Flush 10 ML SYR IVP ×2 (03:09→07:47)
[2022-10-03 03:11] VITALS: BP 124/73; PULSE 89; RESP 15; TEMP 36.2; O2SAT 95
[2022-10-03 07:30] VITALS: PULSE 81
[2022-10-03] MEDS: Acetaminophen 500 MG TAB 1000 MG PO (07:48)
[2022-10-03] MEDS: Apixaban 2.5 MG TAB PO (07:49)
[2022-10-03] MEDS: amLODIPine 5 MG TAB PO (07:49)
[2022-10-03] MEDS: Calcium 600mg/Vit D 200U TAB 1 TAB PO (07:49)
[2022-10-03] MEDS: Multivitamin w/Minerals TAB 1 TAB PO (07:49)
[2022-10-03] MEDS: Allopurinol 300 MG TAB PO (07:50)
[2022-10-03] MEDS: Metoprolol CR 25 MG TABCR PO (07:56)
[2022-10-03 08:17] VITALS: BP 147/80; PULSE 92; RESP 18; TEMP 35.7; O2SAT 98
[2022-10-03 08:50] LABS: HGB 9.9 g/dL (11.2-15.7)
--- NOTE | 2022-10-03 09:41 | DSE_ITS ---
Date of service: 10/03/22 Time of Service: 09:41 DS: Diagnosis Discharge Diagnosis (1) Closed intertrochanteric fracture of right hip: Status: Acute (2) Atrial fibrillation: (3) Essential hypertension: Status: Acute (4) HLD (hyperlipidemia): Status: Acute (5) CKD (chronic kidney disease): Status: Chronic (6) Discharge planning issues: Status: Acute Discharge Plan Disposition Patient Disposition: [facility] Facility(SNF) Condition: Good Discharge Details Reason For Visit: Right Femoral Intertrochanteric Fracture Admit Date/Time: 09/29/22 10:27 Admit Provider: Matt Arellano Attending Provider: Matt Arellano Primary Care Provider: Paty Canales [facility] Hospital Course: This is an 82 yo female with a PMH of chronic afib on Eliquis, HTN, HLD.? On the evening of 09/28/22 she incurred a mechanical fall in her kitchen.? She stated she fell more on her back than on her right side.? She was then unable to bear wt. on the right hip.? EMS called and she initially presented to [facility] for evaluation.? There, she was found to have a right intertrochanteric femur fx.? She denied hitting her head.? No syncope.? Covid, influenza and RSV were negative.? Lytes normal. Creatinine 1.67.? INR 1.03. WBC count 15.9.? Hgb 12.5.? Platelets 159. Presenting VS: BP 149/87 RR 20 T 36.9 HR 125.? A dose of IV metoprolol given in the [facility] ED. Transferred to [facility] for surgical repair. She underwent R hip pinning w/o complications. Her post-operative course was unremarkable. Her creatinine was 1.4, Hgb of 9.9 at time of discharge. Her pain was well managed with scheduled acetaminophen and prn Tramadol. She worked well with PT and was progressing with rehab efforts. D/C to SNF for further rehab efforts. Home Meds and New Rx's Prescriptions: New acetaminophen 500 mg Tablet 1,000 mg PO Q8H Qty: 0 0RF polyethylene glycol 3350 17 gram Powder In Packet 17 g PO DAILY PRN PRN (Reason: Constipation) Qty: 0 0RF tramadol 50 mg Tablet 50 mg PO Q12H PRN PRNQty: 0 0RF Continued losartan [Cozaar] 50 mg Tablet 50 mg PO DAILY atorvastatin [Lipitor] 10 mg Tablet 10 mg PO QPM Rx Instructions: after dinner amlodipine [Norvasc] 5 mg Tablet 5 mg PO DAILY allopurinol 300 mg Tablet 300 mg PO DAILY metoprolol succinate 25 mg Tablet Extended Release 24 Hr 25 mg PO DAILY apixaban 2.5 mg Tablet 2.5 mg PO BID calcium carbonate-vitamin D3 [Calcium 500 With D] 500 mg-10 mcg (400 unit) Tablet 1 tab PO QDAY Centrum Silver Women 8 mg iron-400 mcg-300 mcg Tablet 1 tab PO QDAY Discharge Instructions Activity:: WBAT R lower ext. Equipment/Supplies:: No Equipment Needed Diet:: Normal Diet Discharge Orders Discharge Orders: Discharge Order (Routine); Ordered 10/03/22 Ordered By: Matt Arellano DS: Summary Time Spent with Patient providing and/or coordinating discharge services: Greater than 30 minutes Status at Discharge Functional status at discharge: uses cane/walker Overall status at discharge: patient is progressing back to baseline Mental Status: mental status grossly normal Speech and Movement: speech and movement normal Mood: congruent mood Affect: normal affect Exam Narrative Exam Narrative: Pleasant 82 yo female. Lying in bed. Daughter present. Const General: cooperative and no acute distress Nutritional Appearance: overweight Orientation: oriented x3 Eyes General: appearance normal, both eyes and all related structures Sclera: sclerae normal Resp Effort & Inspection: normal respiratory effort Auscultation: clear to auscultation bilaterally Cardio Rate: tachycardic Rhythm: abnormal rhythm irregularly irregular GI Inspection: non-distended Palpation: soft and nontender Skin General skin exam: no rashes or lesions noted Neuro General: no focal motor deficits (R hip with limited motion d/t pain. ) Cranial Nerves: facial strength normal Cognition: normal cognition Speech: speech normal Extrem General: no pedal edema and no calf tenderness Right lower extremity: hip/thigh (Surgical bandage in place on R proximal lateral thigh. ) Psych Appearance: grossly normal Mental Status: mental status grossly normal Speech and Movement: speech and movement normal Mood: congruent mood Affect: normal affect DS: Data Vitals/I&O Vitals and I&O: Vital Signs Temperature 35.7 C L 10/03/22 08:17 Temperature Source Tympanic 10/03/22 08:17 Pulse 92 H 12/22/22 08:17 Pulse Rhythm Regular 10/03/22 09:05 Respiratory Rate 18 10/03/22 08:17 Respiratory Effort 10/03/22 09:05 Respiratory Depth Normal 10/03/22 09:05 Respiratory Pattern Normal 10/03/22 09:05 Blood Pressure 147/80 H 10/03/22 08:17 Pulse Oximetry 98 10/03/22 08:17 Respiratory End-tidal CO2 40 09/30/22 10:40 Oxygen Delivery Method Room Air 10/03/22 08:17 Oxygen Flow Rate 0 10/03/22 08:17 Pain Level 3 10/03/22 08:17 Comment 10/02/22 11:23 Intake & Output 10/02/22 10/02/22 10/03/22 11:59 23:59 11:59 Intake Total 240 / 580 340 / 580 485 / 485 Output Total 1300 / 2950 1650 / 2950 900 / 900 Balance -1060 / -2370 -1310 / -2370 -415 / -415 Weight 75 kg Intake: IV 5 / 5 Oral 240 / 580 340 / 580 480 / 480 Output: Urine 1300 / 2950 1650 / 2950 900 / 900 Other: Urine Color Yellow Yellow Yellow Urine Appearance Clear Clear Clear Urine Odor Normal None None Voiding Methods Bedside Commode Toilet Toilet Data Completed and Pending Labs on day of discharge: Labs from last 24 hours 10/03/22 08:45 Hgb 9.9 L Hct 30.0 L PFSH All Active Problems Discharge planning issues (Acute) CKD (chronic kidney disease) (Chronic) HLD (hyperlipidemia) (Acute) Essential hypertension (Acute) Closed intertrochanteric fracture of right hip (Acute 09/28/22) S/P ORIF with IM nail: 09/30/2022 Medical History Atrial fibrillation Basal cell carcinoma Fracture of left ankle History of cardioversion Melanoma Surgical History Cataract extraction status, left eye Cataract extraction status, right eye H/O: hysterectomy History of left oophorectomy S/P bilateral breast lumpectomy Social History Smoking/Tobacco Use Status: Never Smoking risk assessment performed?: Yes Alcohol Intake: current Alcohol Intake frequency: holidays/special occasions only Drug use: Never
--- NOTE | 2022-10-03 10:29 | PDOC.CMDIS ---
- If Service Date Differs Date of service: 10/03/22 Time of Service: 10:30 Care Management Discharge Reason for Hospitalization: Right Femoral Intertrochanteric Fracture. Discharge Plan: Val will transport to [facility] with her daughter Abbi and will follow up with the facility providers and plan of care. Patient/Family Education Needs: Review of discharge instructions including medications, limitations and follow up plan of care; discuss Ask Me Three and self management.
--- NOTE | 2022-10-03 11:34 | PT.INTREAT ---
Date of service: 10/03/22 Time of Service: 08:30 PT Notes Visit Reasons: Right Femoral Intertrochanteric Fracture Inpatient Physical Therapy Treatment Note [facility] Date: 10/01/2022 PRECAUTIONS: Fall, activity as tolerated, WBAT R LE SUBJECTIVE: Val is pleasant and agreeable to participating in PT. She reports that she is feeling better today and will be discharging to SNF-level rehab today. OBJECTIVE: PAIN: Patient c/o R LE pain with ther ex BED MOBILITY/TRANSFERS Sit-stand: SBA Stand-sit: SBA GAIT Assistive Device: FWW Weight bearing: WBAT R LE Assist: SBA Distance: ~100' in room Deviation: Step-through gait pattern, slow pacing THEREX: Patient was instructed in a LE strengthening program, completed in a seated position, to include: ankle pumps, heel raises, LAQ, hip flexion and hip abduction. ASSESSMENT: Patient tolerated session with minimal complaint of R LE pain with ther ex. Patient demonstrates improved gait mechanics, utilizing step-through gait pattern and tolerating a progression in gait distance. PLAN: Patient to discharge to SNF-level rehab later today, per provider. TREATMENT CODE/TIME: 25 minutes; 51645, [id number] (08:30)
--- NOTE | 2022-10-03 12:30 | NUR.NOTE ---
Report Nurse to Nurse given to Chantelle Valenzuela RN. Updated on Dx. VS, Pain meds, Skin, Communication. Continent of Bowel and bladder. Lungs clear, HR afib on eliquis. Assist getting out of bed, once ambulating with rolling walker SBA. Pt is alert and oriented x 3. Daughter bringing her by car. Bashir MALAVE,BSNNursing Note:
--- NOTE | 2022-10-04 09:14 | PT.INDS ---
PT Notes Visit Reasons: Right Femoral Intertrochanteric Fracture Inpatient Physical Therapy Discharge Summary Treatment Dates: September 30, 2022 - October 03, 2022 Referring Doctor: Dr. Poli Rai PT Orders:PT CONSULT: Right femoral intertrochanteric fracture status post intramedullary nailing This document serves as a summary of care. No PT services were provided on this date. Patient Profile/Admitting Diagnosis: This is an 82 yo female with a PMH of chronic afib on Eliquis, HTN, HLD.? On the evening of 09/28/22 she incurred a mechanical fall in her kitchen.? She stated she fell more on her back than on her right side.? She was then unable to bear wt. on the right hip.? EMS called and she initially presented to [facility] for evaluation.? There, she was found to have a right intertrochanteric femur fx.? She denied hitting her head.? No syncope.? Covid, influenza and RSV were negative. Patient underwent intratrochanteric femur fracture fixation September 30, 2022. She participated in skilled PT intervention for 6 sessions over the course of 4 days, and demonstrated improvements in mobility and progress toward established goals. She continued to demonstrate limitations in independence with bed mobility, transfers and gait, and requires continued rehabilitation in SNF setting prior to returning home. Social History/Home Situation: Lives in single level dwelling with 3 steps and railing upon entry. Has daughter who lives by and visits frequently. Patient states she was fully independent prior to her injury. Current Functional Limitations: Bed mobility, transfers, gait, ambulation, self-care ADLs Equipment Owned/DME: Front wheeled walker Subjective: Patient states she is been having cramping and spasming in the inner groin of the right hip. Also complaining of right knee pain. States that she is still quite nauseous following her surgery. Has not had any food to eat. States she has a history of right knee OA and is having an orthopedic work-up with Dr. Posadas in the near future. Objective: ROM: Right Upper Extremity: Within functional limits Left Upper Extremity: Within functional limits Right Lower Extremity: Right hip: No active range of motion limited due to pain. Active assisted hip flexion 45 degrees in supine head of bed reclined 30 degrees. Active assistive abduction 15 degrees limited due to groin pain. Internal and external rotation not assessed. In sitting patient assumes approximately 75 to 80 degrees of flexion. Left knee flexion 100 active 110 active assisted with pain at end range. Extension lacks 5 degrees terminal extension. Ankle range of motion within functional limits Left Lower Extremity: Within functional limits throughout left hip knee and ankle Strength: Right Upper Extremity: Glenohumeral joint flexion, abduction, elbow flexion, extension 4/5. Good laboratory apparatus glass blower. Left Upper Extremity: Glenohumeral joint flexion, abduction, elbow flexion and extension 4/5. Good laboratory apparatus glass blower Right Lower Extremity: Patient is able to form volitional quad set right lower extremity with superior migration of patella noted. Hip flexion 3 -/5 with pain, quad 3+/5 minimal pain. Patient able to perform long arc quad in sitting to lacking 5 degrees of terminal extension. Hamstring 4 -/5. Hip AB duction and adduction not tested. Ankle dorsiflexion and plantar flexion 4/5 Left Lower Extremity: 4/5 throughout. Patient able to form straight leg raise with 0 degree lag. Sensation: Patient reports intact sensation light touch throughout bilateral lower extremities. BED MOBILITY/TRANSFERS? Sit-stand: SBA ? Stand-sit: SBA ? GAIT? Assistive Device: FWW? Weight bearing: WBAT R LE Assist: SBA ? Distance:? ~100' in room? Deviation: Step-through gait pattern, slow pacing Balance: Static Sitting: Fair Dynamic Sitting: Fair Static Standing: Poor Dynamic Standing: Poor Special Tests: Mobility Limitations Standardized Measure [facility] AM-PAC 6 clicks Basic Mobility Inpatient Short Form: Raw Score: 11 CMS Score: 73% Informed Consent/Education: Patient instructed in purpose of PT consult and plan of care. Assessment: Patient is a 82 year old female referred to physical therapy services with the diagnosis of status post right femur fracture with IMN. Patient participated in skilled PT intervention for 6 sessions over the course of 4 days, and demonstrated improvements in mobility and progress toward established goals. She continued to demonstrate limitations in independence with bed mobility, transfers and gait, and requires continued rehabilitation in SNF setting prior to returning home. Goals: Goals X1 week 1. Supine-Sit SBA (MET) 2. Sit-Supine SBA (MET) 3. Sit-Stand SBA to FWW (MET) 4. Stand-Sit SBA from FWW (MET) 5. Bed-Chair SBA wth FWW (MET) 6. Chair-Bed SBA - with FWW (MET) 7. Gait 100' with FWW with SBA (MET) 8. Stairs 3 with railing and SBA (NOT MET) Plan of Care/Treatment Plan: DISCHARGE RECOMMENDATIONS: X SNF for continued rehabilitation TREATMENT CODE/TIME: NONE Thank you for this referral. Flores Merrill PT, DPT [facility]
== END 2022-10-03 12:02 | disposition skilled nursing facility (03) | DRG 481 ==
PROVIDERS: Student in an Organized Health Care Education/Training Program; Admitting Provider Family Medicine; PCP Family Medicine; Visit Provider Family Medicine
PROC: 0QS606Z Reposition Right Upper Femur with Intramedullary Internal Fixation Device, Open Approach (ICD-10-PCS; CPT 27245; principal; 2022-09-30 07:30)
DX: S72.141A Displaced intertrochanteric fracture of right femur, initial encounter for closed fracture (principal); N17.9 Acute kidney failure, unspecified; I48.91 Unspecified atrial fibrillation; I12.9 Hypertensive chronic kidney disease with stage 1 through stage 4 chronic kidney disease, or unspecified chronic kidney disease; N18.9 Chronic kidney disease, unspecified; E78.5 Hyperlipidemia, unspecified; Z79.01 Long term (current) use of anticoagulants; Z66 Do not resuscitate; W18.39XA Other fall on same level, initial encounter
CPT/HCPCS: 27245; 36415; 73552; 80048; 80053; 97110; 97162; 97530; 99223; 99239; 71045; 72170; 73501; 81003; 83735; 85014; 85018; 85025; 99232; J0131; J0690; J1100; J1170; J1790; J2270; J2405; J2704

== ENCOUNTER 2022-10-16 13:10 | Outpatient (CLI) | payer MEDICARE, OTHER, SELFPAY ==
--- NOTE | 2022-10-16 13:00 | DI.RAD_ITS ---
Exam(s) XR HIP RT AP LAT ONLY EXAM: XR HIP RT AP LAT ONLY INDICATION: right hip fx f/u. COMPARISON: CR,XR XR PELVIS AP from 09/29/2022 CR,XR XR FEMUR RT from 09/29/2022 XA XR HIP RT IN OR from 09/30/2022 TECHNIQUE: 2D digital imaging was performed. Two views. FINDINGS: There has been no change in the alignment of the hardware in the proximal right femur. There has bee n some interval healing at the intertrochanteric fracture. There is no change in the alignment of th e lesser trochanter fragment. DATA REPOSITORY: RADIATION DOSE DELIVERED:
== END 2022-10-16 13:11 | disposition home or self-care (01) ==
LOC: DIORS 13:12
PROVIDERS: PCP Family Medicine; Referring Provider Family Medicine; Visit Provider Student in an Organized Health Care Education/Training Program
DX: S72.141D Displaced intertrochanteric fracture of right femur, subsequent encounter for closed fracture with routine healing (principal); X58.XXXD Exposure to other specified factors, subsequent encounter
CPT/HCPCS: 73502

== ENCOUNTER 2022-12-02 13:33 | Outpatient (CLI) | payer MEDICARE, OTHER, SELFPAY ==
--- NOTE | 2022-12-02 13:00 | DI.RAD_ITS ---
Exam(s) XR KNEE RT 3V AP,LAT,STEPHANIE EXAM: XR KNEE RT 3V AP,LAT,STEPHANIE CLINICAL HISTORY: eval R knee arthritis. TECHNIQUE: 2D digital imaging was performed. Three views. COMPARISON: No exams were available for comparison FINDINGS: BONES: No acute fracture is present. No bony destructive lesion is seen. Patellar enthesophytes. JOINTS: Severe narrowing of the medial femoral tibial joint, with a [id number] appearance. Varus a ngulation. Flattening of the tibial spines. Spurring at the femoral intercondylar notch. Spurring at the patellofemoral joint. No joint effusion is seen. SOFT TISSUE: Normal. IMPRESSION: On severe degenerative changes of the medial femoral tibial joint DATA REPOSITORY: RADIATION DOSE DELIVERED:
--- NOTE | 2022-12-02 13:00 | DI.RAD_ITS ---
Exam(s) XR HIP RT AP LAT ONLY EXAM: XR HIP RT AP LAT ONLY CLINICAL HISTORY: f/u R hip IMN. TECHNIQUE: 2D digital imaging was performed. Two views COMPARISON: CR XR HIP RT AP LAT ONLY from 10/16/2022 FINDINGS: There has been no change in the alignment of the hardware in the proximal right femur. There has bee n continued healing at the intertrochanteric fracture. Lesser trochanter fragment is unchanged in po sition. DATA REPOSITORY: RADIATION DOSE DELIVERED:
== END 2022-12-02 13:34 | disposition home or self-care (01) ==
LOC: DIORS 13:33
PROVIDERS: PCP Family Medicine; Referring Provider Family Medicine; Visit Provider Student in an Organized Health Care Education/Training Program
DX: S72.141D Displaced intertrochanteric fracture of right femur, subsequent encounter for closed fracture with routine healing (principal); M17.11 Unilateral primary osteoarthritis, right knee; X58.XXXD Exposure to other specified factors, subsequent encounter
CPT/HCPCS: 20610; 73562; 73502; J1040

== ENCOUNTER → 2023-03-03 13:36 | Outpatient (BNVA) | payer MEDICARE, OTHER, SELFPAY | PROVIDERS: PCP Family Medicine; Referring Provider Family Medicine; Visit Provider Student in an Organized Health Care Education/Training Program | DX: S72.141D Displaced intertrochanteric fracture of right femur, subsequent encounter for closed fracture with routine healing (principal); X58.XXXD Exposure to other specified factors, subsequent encounter; M17.11 Unilateral primary osteoarthritis, right knee | CPT/HCPCS: 99214 ==

== ENCOUNTER 2023-07-24 01:06 | Outpatient (CLI) | payer MEDICARE, OTHER, SELFPAY ==
[2023-07-24 14:57] LABS: HCT 39.7 % (36.0-46.0); HGB 13.1 g/dL (11.2-15.7); MCH 30.5 pg (27.0-33.0); MCV 92 fL (80-95); MPV 10.6 fL (8.0-11.0); Platelet Count 218 10^3/uL (130-400); RDW 15.1 % (11.7-14.6); WBC 6.77 10^3/uL (4.4-10.8)
[2023-07-24 15:33] LABS: Anion Gap 10.3 mmol/L (3-11); BUN 37 mg/dL (7-18); CO2 24.7 mmol/L (21.0-32.0); CREATININE 1.6 mg/dL (0.55-1.02); Calcium 9.9 mg/dL (8.5-10.1); Chloride 106 mmol/L (98-107); Glucose 109 mg/dL (74-106); Potassium 4.1 mmol/L (3.5-5.1); Sodium 141 mmol/L (136-145)
== END 2023-07-24 01:07 | disposition home or self-care (01) ==
LOC: LBO 01:07
PROVIDERS: PCP Family Medicine; Visit Provider Student in an Organized Health Care Education/Training Program
DX: M17.11 Unilateral primary osteoarthritis, right knee (principal); Z01.818 Encounter for other preprocedural examination
CPT/HCPCS: 36415; 80048; 85027; 77073

== ENCOUNTER 2023-07-24 15:26 | Outpatient (CLI) | payer MEDICARE, OTHER, SELFPAY ==
--- NOTE | 2023-07-24 14:16 | DI.RAD_ITS ---
Exam(s) XR STANDING ALIGNMENT EXAM: XR STANDING ALIGNMENT CLINICAL HISTORY: R TKR Planning. TECHNIQUE: 2D digital imaging was performed. Four images were obtained. COMPARISON: CR,XR XR FEMUR RT from 09/29/2022 CR XR HIP RT AP LAT ONLY from 12/02/2022 FINDINGS: BONES: Stable alignment of the ORIF of the proximal right femur. Degenerative changes are seen in th e left hip. The hips are well maintained. There are marked degenerative changes in the right knee a nd moderately severe degenerative changes of the left knee. Findings include joint space narrowing a nd osteophytes. The findings are most marked in the medial femoral tibial joint of the right knee. There are findings of an ORIF of the distal left fibula. Mild joint space narrowing is seen in the l eft ankle.The left lower extremity is 1.5 cm longer than the right lower extremity. SOFT TISSUE: Normal. IMPRESSION: Osteoarthritis of the knees, right greater than left. DATA REPOSITORY: RADIATION DOSE DELIVERED:
== END 2023-07-24 15:27 | disposition home or self-care (01) ==
LOC: DIORS 15:26
PROVIDERS: PCP Family Medicine; Visit Provider Physician Assistant
DX: M17.11 Unilateral primary osteoarthritis, right knee (principal); Z01.818 Encounter for other preprocedural examination
CPT/HCPCS: 77073

== ENCOUNTER 2023-07-29 07:26 | Observation (INO) | payer MEDICARE, BC, OTHER, SELFPAY ==
[2023-07-29] VITALS (18 sets, daily range): BP systolic 102–145; BP diastolic 61–84; PULSE 73–95; RESP 12–18; TEMP 35.5–36.6; O2SAT 94–100; BMI 30.4
--- NOTE | 2023-07-29 06:38 | W.ANESPRE ---
General Info Date of Service Date Performed: 07/29/23 Height: 5 ft 1 in Weight: 73.028 kg Body Mass Index (BMI): 30.4 Surgical Procedure: Operation Date: 07/29/23 09:40 Proposed Procedure Side Surgeon p Knee Total Arthroplasty w/OrthAlign, Cemented CR Right Hari Posadas MD Meds Allergies and Home Medications Allergies Allergy/AdvReac Type Severity Reaction Status Date / Time No Known Allergies Allergy Verified 07/29/23 07:41 Home Medication Medication Instructions Recorded allopurinol 300 mg tablet 300 mg PO DAILY 09/29/22 amlodipine 5 mg tablet (Norvasc) 5 mg PO HS 09/29/22 apixaban 2.5 mg tablet 2.5 mg PO BID 09/29/22 atorvastatin 10 mg tablet (Lipitor) 10 mg PO QPM 09/29/22 calcium carbonate 500 mg-vitamin 1 tab PO QDAY 09/29/22 D3 10 mcg (400 unit) tablet (Calcium 500 With D) losartan 50 mg tablet (Cozaar) 50 mg PO HS 09/29/22 metoprolol succinate 25 mg 25 mg PO HS 09/29/22 tablet,extended release 24 hr [id number] 8 mg-folic 400 1 tab PO QDAY 09/29/22 mcg-K 50 mcg-lutein 300 mcg tablet (Centrum Silver Women) polyethylene glycol 3350 17 gram 17 g PO DAILY PRN PRN Constipation 10/03/22 oral powder packet #0 ea alendronate 70 mg tablet 70 mg PO ONCE 07/28/23 acetaminophen 500 mg tablet 1,000 mg (2 x 500 mg) PO Q8H PRN 07/29/23 pain #90 tabs celecoxib 200 mg capsule (Celebrex) 200 mg PO BID PRN #60 caps 07/29/23 dexamethasone 4 mg tablet 4 mg PO DAILY #2 tabs 07/29/23 docusate sodium 100 mg capsule 100 mg PO BID #30 caps 07/29/23 (Colace) gabapentin 300 mg capsule 300 mg PO QHS #14 caps 07/29/23 pantoprazole 40 mg tablet,delayed 40 mg PO DAILY #14 tabs 07/29/23 release Current Visit Medications: Current Medications Generic Name Dose Route Start Last Admin Trade Name Freq PRN Reason Stop Dose Admin Acetaminophen 1,000 mg 07/29/23 06:00 Acetaminophen 500 Mg Tab PO 07/29/23 16:00 PREOP EDWARD Celecoxib 400 mg 07/29/23 06:00 Celecoxib 200 Mg Cap PO 07/29/23 16:00 PREOP EDWARD Gabapentin 300 mg 07/29/23 06:00 Gabapentin 300 Mg Cap PO 07/29/23 16:00 PREOP EDWARD Tranexamic Acid 1,000 mg/ 60 mls @ 360 mls/hr 07/29/23 06:00 Sodium Chloride IVPB 07/29/23 16:00 PREOP EDWARD Ringer's Solution 1,000 mls @ 80 mls/hr 07/29/23 06:00 IV 08/27/23 23:59 INFUSION EDWARD Cefazolin Sodium/Dextrose 2 gm in 50 mls @ 100 mls/hr 07/29/23 06:00 Ancef Duplex IVPB 07/29/23 16:00 PREOP EDWARD IV Miscellaneous Supplies 1 each 07/29/23 06:00 Iv Access IV 08/27/23 23:59 DIRECTED EDWARD Sodium Chloride 0 ml 07/29/23 06:00 Normal Saline Flush 10 Ml Syr IV 08/27/23 23:59 PRN PRN Sodium Chloride 0 ml 07/29/23 06:00 Normal Saline 10 Ml Vial IJ 08/27/23 23:59 DIRECTED PRN Sterile Water 0 ml 07/29/23 06:00 Water,Injection,Sterile 10 Ml Vial IJ 08/27/23 23:59 DIRECTED PRN PFSH Active Problems Active Problems: Problem Status Onset Code Arthritis of right knee M17.11 Intertrochanteric fracture of right hip S72.141A CKD (chronic kidney disease) N18.9 HLD (hyperlipidemia) E78.5 Essential hypertension I10 Medical History Medical History Atrial fibrillation Basal cell carcinoma Fracture of left ankle History of cardioversion Melanoma Surgical History Surgical History Cataract extraction status, left eye Cataract extraction status, right eye H/O: hysterectomy History of left oophorectomy S/P bilateral breast lumpectomy Tobacco Smoking/Tobacco Use Status: Never Alcohol Alcohol Intake: current Alcohol intake frequency: holidays/special occasions only Substance Use Substance use: Never Substance use type: does not use Vital Signs and Lab Results Vital Signs Most Recent Vital Signs in EMR: Temp Pulse Resp BP Pulse Ox 36.3 C L 95 H 17 145/84 H 99 07/29/23 07:26 07/29/23 07:26 07/29/23 07:26 07/29/23 07:26 07/29/23 07:26 Lab Results Blood Type / Crossmatch: No Data to Display Complete Blood Count: White Blood Count 6.77 10^3/uL (4.4-10.8) 07/24/23 14:45 Red Blood Count 4.30 10^6/uL (3.93-5.22) 07/24/23 14:45 Hemoglobin 13.1 g/dL (11.2-15.7) 07/24/23 14:45 Hematocrit 39.7 % (36.0-46.0) 07/24/23 14:45 Platelet Count 218 10^3/uL (130-400) 07/24/23 14:45 Complete Metabolic Panel: Sodium 141 mmol/L (136-145) 07/24/23 14:45 Potassium 4.1 mmol/L (3.5-5.1) 07/24/23 14:45 Chloride 106 mmol/L (98-107) 07/24/23 14:45 Carbon Dioxide 24.7 mmol/L (21.0-32.0) 07/24/23 14:45 BUN 37 mg/dL (7-18) H 07/24/23 14:45 Creatinine 1.6 mg/dL (0.55-1.02) H 07/24/23 14:45 Est GFR (CKD-EPI 2020) 32.20 (mL/min/1.73m2) 07/24/23 14:45 Calcium 9.9 mg/dL (8.5-10.1) 07/24/23 14:45 Glucose 109 mg/dL (74-106) H 07/24/23 14:45 Liver Function Panel: No Data to Display Coagulation Panel: No Data to Display Cardiac Panel: No Data to Display Arterial Blood Gas: No Data to Display Venous Blood Gas: No Data to Display Pancreas Panel: No Data to Display Thyroid Panel: No Data to Display Infectious Disease: No Data to Display Blood Cultures: No Data to Display Toxicology Panel: No Data to Display Anesthesia Assessment and Plan Anesthesia History Personal History: No History of Anesthesia Complications Family History: No Family History of Anesthesia Complications Exercise Tolerance Exercise Tolerance: Metabolic Equivalents>4 Cardiac & Pulmonary Exam Cardiac Exam: Normal S1/S2 Heart Sounds Pulmonary Exam: Clear Bilateral Breath Sounds Implantable Cardiac Device Does patient have a Pacemaker or an ICD?: No Airway Exam Known Difficult Airway: No Mallampati Class: 2 Mouth Opening: Normal (> 3cm) Thyromental Distance: Greater than 3 cm Neck Range of Motion: Full ROM Neck Circumference: Normal Teeth Condition: Normal Dentition ASA Classification ASA Score: ASA 2 Emergency Case?: No NPO Status NPO Status: NPO Clears >2 hours, Solids >8 hours Anesthesia Plan Resuscitation Status: Full Code Anesthesia Technique: Spinal Anesthesia Airway Planned: Natural Airway Pain Management: Surgeon and patient request nerve block Monitors Used: Standard Monitors Preoperative Comments:: 82 yo female for TKA. Sig PMHx: HTN (amlodipine, losartan), AFib (metoprolol, apixaban - last dose >72 hrs ago), CKDIII. never smoker, occ EtOH. Previous Anes: - hip fracture, LMA 4.
[2023-07-29] MEDS: Celecoxib 200 MG CAP 400 MG PO (07:43)
[2023-07-29] MEDS: Gabapentin 300 MG CAP PO (07:44)
[2023-07-29] MEDS: Acetaminophen 500 MG TAB 1000 MG PO (07:44)
[2023-07-29] MEDS: Lactated Ringers 1,000 ML 80 ML IV (07:54)
--- NOTE | 2023-07-29 08:42 | W.ANESNERVE ---
Nerve Block Single Injection Procedure Date and Time Date Performed: 07/29/23 Procedure Start: 08:30 Location Where Procedure Performed Procedure Location: Day Surgery Unit Reason Performed: Postoperative Analgesia Requesting Provider: Hari Posadas Timeout Performed Timeout Performed: Yes Monitoring Used ECG, Blood Pressure and SpO2 Sterility Sterility: Hand Hygiene, Surgical Cap, Surgical Mask and Sterile Gloves Sedation Given During Procedure Sedation Given (Indicate Dose Given): No Sedation given Patient Mental Status Patient Mental Status: Awake Nerve Block 1st Nerve Block: Laterality: Right Block Type: Adductor Canal Ultrasound Image Saved?: Yes Needle / Catheter Used: 100mm SonoPlex II Local Anesthetic Bolus (Indicate Dose Given): Lidocaine used for local infiltration of skin, Injected in 3-5ml increments after negative blood aspiration and Bupivacaine 0.5% Dose:: 10 mL Additives (Indicate Dose Given): None Ultrasound: Sterile probe cover and gel used Nerve Stimulator: Supplement to Ultrasound use and Other (quad twiching with slow advancment, needle repositioned, but injection made due to twitching with any advancement. ) Paresthesia: None Procedure Tolerated: No Complications Procedure Outcome: Successful Performed By: Wilberto Durant 2nd Nerve Block: Laterality: Right Block Type: Other (ant. fem. cutaneous) Ultrasound Image Saved?: Yes Needle / Catheter Used: 100mm SonoPlex II Local Anesthetic Bolus (Indicate Dose Given): Bupivacaine 0.5% Dose:: 5 mL Additives (Indicate Dose Given): None Ultrasound: Sterile probe cover and gel used Nerve Stimulator: Supplement to Ultrasound use and No twitch or parasthesia noted < 0.5 mA Paresthesia: None Procedure Tolerated: No Complications Procedure Outcome: Successful Performed By: Wilberto Durant
[2023-07-29] MEDS: ceFAZolin 2 GM/50 ML BAG IVPB (08:46)
[2023-07-29] MEDS: HYDROmorphone 2 MG/ML SYR IVP (11:34)
[2023-07-29] MEDS: Normal Saline 10 ML VIAL IJ (11:36)
--- NOTE | 2023-07-29 12:51 | W.ANESPOSTOP ---
Postoperative Evaluation Date, Time and Location Date Performed: 07/29/23 Time Performed: 12:52 Patient Location: Day Surgery Unit Vital Signs Most Recent Imported Vital Signs: Most Recent Vital Signs Temp Pulse Resp BP Pulse Ox 36.4 C L 73 18 110/68 99 07/29/23 12:27 07/29/23 12:27 07/29/23 12:27 07/29/23 12:27 07/29/23 12:27 Pain Score Most Recent Pain Score: Most Recent Pain Score Pain Level 2 07/29/23 12:27 Assessment Mental Status: Awake (Alert & Oriented to Patient Baseline) Airway and Respiratory Function: Patent airway with normal (patient baseline) respiratory exam Cardiovascular Function: Hemodynamically Stable Hydration Status: Adequately Hydrated Nausea & Vomiting: No Nausea or Vomiting Pain: Pain is tolerable per patient Peripheral Nerve Block: Regional nerve block not resolved at time of post operative discharge
--- NOTE | 2023-07-29 12:56 | W.ANESPOSTOP ---
Postoperative Evaluation Date, Time and Location Date Performed: 07/29/23 Time Performed: 12:30 Patient Location: Day Surgery Unit Vital Signs Most Recent Imported Vital Signs: Most Recent Vital Signs Temp Pulse Resp BP Pulse Ox 36.4 C L 73 18 110/68 99 07/29/23 12:27 07/29/23 12:27 07/29/23 12:27 07/29/23 12:27 07/29/23 12:27 Most Recent Vital Signs Temp Pulse Resp BP Pulse Ox 36.4 C L 73 18 110/68 99 07/29/23 12:27 07/29/23 12:27 07/29/23 12:27 07/29/23 12:27 07/29/23 12:27 Pain Score Most Recent Pain Score: Most Recent Pain Score Pain Level 2 07/29/23 12:27 Assessment Mental Status: Awake (Alert & Oriented to Patient Baseline) Airway and Respiratory Function: Patent airway with normal (patient baseline) respiratory exam Cardiovascular Function: Hemodynamically Stable Hydration Status: Adequately Hydrated Nausea & Vomiting: No Nausea or Vomiting Pain: Pain is tolerable per patient Peripheral Nerve Block: Regional nerve block not resolved at time of post operative discharge
--- NOTE | 2023-07-29 13:04 | ROE_ITS ---
Date of service: 07/29/23 Time of Service: 09:00 Operative Note Operative Note DATE OF PROCEDURE: 07/29/23 PRE-OP DIAGNOSIS: Right Knee Arthritis POST-OP DIAGNOSIS: same PROCEDURE: Right Total Knee Arthroplasty with Intraoperative Navigation SURGEON: Hari Posadas PRODUCT DESIGNER: Rafaela Berumen ANESTHESIA TYPE: Spinal Refer to Anesthesia Record ESTIMATED BLOOD LOSS: 50 PATHOLOGY: none sent COMPLICATIONS: None Patient was transported to: PACU Patient's condition: stable Implants: 1. Depuy Attune Cruciate Retaining Femoral Component, Size 4 2. Depuy Attune Fixed Bearing Tibial Component, Size 3 3. Depuy Attune 4x12 CR, FB Poly 4. Depuy Attune Patellar Component, Size 32 Indications: I have seen Val in clinic for symptoms of knee arthritis, confirmed with radiographic findings. She has exhausted nonoperative methods and was having significant limitations in daily function and desired better function and less pain. I discussed the technical details of a knee replacement. I explained the risks of the procedure to include, but not limited to, bleeding, infection, pain, stiffness, fracture, damage to nerves and vessels, damage to muscles and tendons, loosening, need for repeat procedure, blood clot and cardiopulmonary demise. Despite these risks, Val elected to proceed. Findings: There was significant signs of arthritis throughout the knee, focused mostly in the medial compartment. Procedure Description: Val was greeted in the preoperative holding area where the correct side was identified and marked. The consent was reviewed with the patient and signed. The history and physical was updated. All questions were answered. Preoperative mediacations were administered: Acetaminophen 1000mg, Celebrex 400mg, Gabapentin 300mg, and Oxycontin 10mg. An adductor canal block was then administered by the anesthesia team in the PACU. She was taken back to the operating room. A spinal anesthestic was attempted but unsuccessful, so she was given a general anesthetic. The patient was placed into the supine position on the operating room table. A nonsterile tourniquet was placed high onto the leg but only used for cementing. Posts were placed for positioning during the procedure. All bony prominences were well padded. Prophylactic antibiotics in the form of Cefazolin were administered. 1g of Tranxemic Acid was given intravenously within 30 minutes of incision. The right leg was then prepped with Chloraprep and draped in a standard fashion with impervious stockinette and extremity drape with Iodine impregnated skin protection. A timeout to confirm correct identity, side and site, procedure, allergies, anesthesia, and medical concerns was performed. With the knee in some flexion, a midline incision was made overlying the knee. Full thickness skin flaps were raised once the extensor mechanism was encountered. These were raised medially and laterally. Any bleeding was controlled with electrocautery. Once the extensor mechanism was fully exposed, a medial parapatellar arthrotomy was performed in a flexed position. All bleeding from the arthrotomy and the geniculate arteries was coagulated. A medial subperiosteal peel was performed with electrocautery to the midcoronal plane. Due to the significant varus deformity the entire medial tibial plateau was exposed. The fat pad was removed while keeping the patellar tendon protected. The anterior distal femur synovium was removed for later visualization. The ACL and PCL were resected and the anterior horn of the lateral meniscus was transected. The knee was then flexed with the patella everted. Large osteophytes from the tibia were removed. Large osteophytes from the femur were removed. A single starting pin was then placed 1cm anterior to the PCL insertion and the notch in the direction of the femoral head. The OrthoAlign device was applied over the pin. It was oriented to be in line with the epicondylar axis and the trochlear groove. It was then pinned into place. The navigation computer was then turned on and calibrated. The distal femur cut was set at 0 degrees varus/valgus and 3.5 degrees flexion. The distal femur cutting guide then was positioned for a 9mm cut. The distal femur was cut with an oscillating saw while protecting the soft tissues. The tibia was then addressed. The OrthoAlign device was placed over the tibial tubercle and medial tibia and secured into position. Once again, OrthoAlign was calibrated and then set for a 2 degree varus cut and 5 degrees of posterior slope. With this locked into position, the cut thickness stylus was used to assess cut thickness. The medial side, most involved side, was set for a 4mm cut. This was then held in position and pinned into place with 2 additional pins and a cross pin for stability. The medial and lateral collateral ligaments were protected and the cut was performed. With this completed, it was assessed and noted to be of appropriate dimensions. The guide and OrthoAlign was removed. A spacer block was inserted and the knee was brought into extension. The 8mm spacer block provided full extension, without hyperextension and with stability of both the medial and lateral collateral ligaments was assessed. The pins from the femur and the tibia were then removed. The Ortholign recreational vehicle repairer was then utilized to help determine appropriate balance a nd set the rotation of the femoral cut. Once this was completed, the distal femur was then sized. This indicated a size 4 femur. The 4-in-1 cutting guide was the placed. The posterior medial femur cut was evaluated and appeared of good thickness. The spacer block was inserted underneath the cutting guide and stability was confirmed in 90 degrees of flexion. An cali wing was used to confirm appropriate position of the anterior cut to avoid notching. This cutting guide was ensured to be flush on the cut surface and then pinned into place with headed pins. While protecting the soft tissues, quad tendon, and collateral ligaments, the anterior and posterior cuts were performed with a saw. The central two pins were removed and the posterior and anterior chamfers were cut next. The notch-cutting guide was placed. This was pinned to lateralize the femoral component as much as possible while keeping it flush on the cut surface. This was then pinned into position. A reciprocating saw was used to make the notch cut. A rasp smoothed the cut surfaces. A trial posterior stabilized femoral component was then inserted, impacted down to the cut surfaces, and the lug holes were drilled. A provisional trial tibial component was placed and the knee was brought through range of motion. The polyethylene was trialed until there was good flexion and extension with excellent stability to the medial and lateral collaterals. The patella was tracking without thumbs. The tibial cut surface was fully exposed. The medial and lateral menisci were removed. The tibia was then sized as a 3. The tibia had been previously marked during trialing to correspond to the center of the tibial component to help with rotation. The trial was aligned to this matt, approximately rotated to the medial 1/3rd of the tibial tubercle. The trial was pinned into place. The tibia was prepared with a reamer and a keel punch. The knee was then brought into extension and the patella was measured as 21mm. Using the patellar clamp and cut guide, this was resected to a flat surface with at least 13mm of thickness remaining. The size 32 patella fit the best. This was oriented and then clamped into position. The lugs were drilled. The trial components were removed. The final components, except for the polyethylene were opened on the back table. The periosteal and capsular tissues, especially posteriorly, around the knee were then systematically injected with a periarticular cocktail consisting of 246mg of Ropivacaine, 0.5mg of Epinephrine, 0.08mg of Clonidine, and 30mg of Ketorolac, diluted to 100cc. The tourniquet was then inflated to 275mmHg. The knee was thoroughly irrigated with a pulse lavage and dried. On the back table, with the implants opened, the cement was mixed. 2 batches of antibiotic laden cement were prepared with vacuum assistance. After the cement was ready a small amount was placed on to the back side of the tibial component at the keel. A small amount was placed onto the posterior flange of the femur. Cement was manual pressurized and impregnated into the cut surface of the tibia. The tibial component was then inserted into the cut surface and impacted into position. Excess cement was removed and the component was reimpacted. Again, excess cement was removed and our attention was then turned to the femur. The femoral cut surface was once again dried and cement was manually impacted into the cut surface. The femoral component was lined with the lug holes and impacted. Excess cement was removed. It was ensured to be down against the cut surface. The trial polyethylene was then inserted and the leg was brought out into full extension for the duration of the cement curing process, approximately 15min. Cement was lastly manually impacted into the cut surface of the patella and the patellar button was clamped into position and held. During this process attention was turned to the gutters of the knee and for all interfaces for any excess cement. The knee was then thoroughly irrigated with Surgiphor Betadine solution. It was allowed to sit in the knee for 3 minutes before being irrigated out with saline. After the cement had finally cured, approximately 15min, the clamp was removed from the patella and the knee was taken through range of motion. A size 12mm polyethylene component provided the best range of motion and stability with less than 2mm gapping with medial and lateral stress and full extension without significant hyperextension. The patella was tracking with a no-thumbs technique. The trial poly was removed and once again the knee was checked for any loose, excess, or errant cement. The poly component was then inserted into position after cleaning and drying the tibial tray. The capsule was then reapproximated with a No. 1 Vicryl at multiple locations. The capsule was finally closed with a No. 2 Stratafix, barbed suture. The tourniquet was then released and the arthrotomy appeared watertight without significant bleeding. The second dosing of 1g TXA was started. Deep tissues were then reapproximated with 0 Vicryl and 2-0 Vicryl. The skin was closed with a running 3-0 Monocryl in a subcuticular fashion. This was reinforced with skin glue. A Mepilex silver dressing was applied along with a [id number] KATYA wrap. A CryoCuff was applied. Val was transferred to the hospital bed without difficulty an suffering no apparent complication. She has a good prognosis. Physical therapy will start today and without restrictions, weight-bearing as tolerated. Her home dose of Apixaban will be used for DVT prophylaxis.
--- NOTE | 2023-07-29 13:07 | IN_ITS ---
PT Notes Visit Reasons: Right knee DJD Physical Therapy Day Surgery Initial Evaluation Date: 07/29/2023 Referring Doctor: EDUARDO Abraham PT Orders: PT CONSULT: S/P Ortho Surgery Precautions: WBAT on the R LE with AD. Patient Profile/Admitting Diagnosis: Silvia is an 82-year-old female with degenerative joint disease of the right knee and is status post right total knee arthroplasty on postoperative day 0. PMHX: Medical History Atrial fibrillation Basal cell carcinoma Fracture of left ankle History of cardioversion Melanoma Surgical History Cataract extraction status, left eye Cataract extraction status, right eye H/O: hysterectomy History of left oophorectomy S/P bilateral breast lumpectomy Social History/Home Situation: Lives alone in a private home with 3 steps to enter with a rail on the right side going up. Daughter will be with patient for the first couple of days to ensure safety at home. Equipment Owned/DME: Standard walker Subjective: Patient complained of being spacey, woozy, dopy at the start of session. Daughter has observed same symptoms in her mother 5 minutes before PT came in. Patient was agreeable to trying out getting off bed and see how she does sitting up and standing up. Symptoms did worsen in sitting ans standing with BP softening up as measured by Nurse Chacho. Further walking was deferred to ensure safety and patient was agreeable to be seen again a little later after she rested. Per daughter, her mother appeared to be not on her baseline conversation ability, felt that she did not make much sense as she used to. Objective: General Observation: Supine in bed. Appeared lethargic. Mental Status: Oriented x 3 but word finding difficulty worse today per daughter, had a hard time making appropriate responses. Pain: 0.5/10 in the R knee ROM: Right Lower Extremity: Hip flexion WFL. Hip abduction WFL. Knee flexion 20 degrees to 90 degrees actively while seated on chair. Knee extension -20 degrees ankle dorsiflexion WFL. Ankle plantarflexion WFL. Left Lower Extremity: Hip flexion WFL. Hip abduction WFL. Knee flexion WFL. Ankle dorsiflexion WFL. Ankle plantarflexion WFL. Strength: Right Lower Extremity: Hip flexors 4/5. Hip abductors 4/5. Knee flexors 3-/5. Knee extensors 3-/5. Ankle dorsiflexors 5/5. Ankle plantarflexors 5/5. Left Lower Extremity:Hip flexors 5/5. Hip abductors 5/5. Knee flexors 5/5. Knee extensors 5/5. Ankle dorsiflexors 5/5. Ankle plantarflexors 5/5. Sensation: Intact as to pain and light pressure in bilateral lower extremities Bed Mobility/Transfers: Supine to sit stand by assist with moderate cueing provided to use B hands for support and to rise slowly Sit to stand contact-guard assist with moderate cueing provided to use B hands for support and to rise slowly Stand to sit contact-guard assist with moderate cueing provided to use B hands to control descent Gait: After having rested for about 1 and half hours and having BP more stabilized, facilitated safe and correct performance of level surface ambulation using front-wheeled walker with step through heel toe gait pattern requiring contact- guard assist with moderate cueing provided for walker management. posture, and movement sequence. Stairs: Guided patient through safe and correct navigation of 6 x 4 inch steps and 4 x 6 inch steps while holding onto 1 rail with 1 hand and using a single-point cane with the other hand with moderate cueing provided for movement sequence and overall safety. Balance: Static Sitting: Normal Dynamic Sitting: Normal Static Standing: Fair Dynamic Standing: Fair Special Tests: Mobility Limitations Standardized Measure [facility] AM-PAC 6 clicks Basic Mobility Inpatient Short Form: Raw Score: 18 CMS Score: 47% deficit Informed Consent/Education: Patient instructed in purpose of PT consult. Packet containing TKA exercise protocol has been given to patient. Education and training on initial set of exercises that can be done at home have been completed with patient. THERA ACT: Trained patient with correct performance of exercises below to maximize motor control, joint flexibility, soft tissue extensibility of the R knee musculature: Access Code: [email or web address] URL: [email or web address] Date: 07/29/2023 Prepared by: Mali Lay Exercises - Supine Quad Set - 1 x daily - 7 x weekly - 1 sets - 10 reps - 5 hold - Supine Heel Slide - 1 x daily - 7 x weekly - 1 sets - 10 reps - 5 hold - Supine Ankle Pumps - 1 x daily - 7 x weekly - 1 sets - 10 reps - 5 hold - Small Range Straight Leg Raise - 1 x daily - 7 x weekly - 1 sets - 10 reps - 5 hold - Seated March - 1 x daily - 7 x weekly - 1 sets - 10 reps - 5 hold ASSESSMENT: Remained orthostatic even after second attempt at mobilizing patient requiring contact-guard assist for all mobility ADL performance for safety. In agreement with Nurse Carreon with overnight admission for continued observation to allow for adequate time to hemodynamically stabilize considering age and co-morbidities. Patient presents with clinical signs and symptoms consistent with current/admitting diagnoses that have resulted to mobility limitations, gait instability, generalized weakness, and impairment of motor control as demonstrated by the following impairment level findings: 1. Decreased strength to right knee major muscle groups 2. Impaired standing balance 3. Limitation of joint range of motion in right knee Impairments are contributing to the following functional limitations: 1. Inability to safely ambulate without assistive device 2. Increase completion time for mobility ADL performance 3. Increased fall risk Patient is assessed as a 11798 moderate complexity based on the following: History: 82-year-old female with impairment level findings, functional limitations, and past medical history as indicated above Examination: Demonstrable impairment in strength, balance, and mobility level with underlying impairments and functional limitations as documented above Presentation: Evolving Decision Makin moderate complexity Goals: N/A. PT evaluation and 1-2 treatment sessions only for functional mobility training using recommended AD and for HEP instruction. Plan of Care/Treatment Plan: N/A. PT evaluation and 1-2 treatment session only for functional mobility training using recommended AD and for HEP instruction. DISCHARGE RECOMMENDATIONS: Admission to med surg unit for further observation. Plan to re-evaluate tomorrow morning before potential discharge from facility. TREATMENT CODE/TIME: 23447 x 20 minutes for 1 unit, 66142 x 45 minutes for 3 units beginning at 13:07 PM and 16:05 PM. Thank you for the opportunity to participate in the care of this patient. Mali Lay PT, DPT, CLT [facility] [place], [place]
[2023-07-29] MEDS: Ondansetron 4 MG/2 ML VIAL IVP (14:23)
[2023-07-29] MEDS: Normal Saline Flush 10 ML SYR IV (14:24)
[2023-07-29] MEDS: Acetaminophen 325 MG TAB 650 MG PO (16:50)
[2023-07-29] MEDS: ceFAZolin 1 GM/50 ML BAG IVPB ×2 (18:56→23:24)
[2023-07-29] MEDS: Atorvastatin 10 MG TAB PO (19:49)
[2023-07-29] MEDS: Celecoxib 200 MG CAP PO (19:50)
[2023-07-29] MEDS: Metoprolol CR 25 MG TABCR PO (22:00)
[2023-07-29] MEDS: amLODIPine 5 MG TAB PO (22:00)
[2023-07-30 02:45] VITALS: BP 122/73; PULSE 70; RESP 16; TEMP 35.5
[2023-07-30 03:33] VITALS: BP 124/81
[2023-07-30] MEDS: Acetaminophen 325 MG TAB 650 MG PO ×2 (04:28→08:50)
[2023-07-30 07:15] VITALS: BP 118/69; PULSE 74; RESP 17; TEMP 35.8; O2SAT 97
--- NOTE | 2023-07-30 07:58 | W.PM.DS.N ---
Date of service: 07/30/23 Time of Service: 07:05 DS: Diagnosis Discharge Diagnosis (1) Arthritis of right knee: Status: Resolved Discharge Plan Disposition Patient Disposition: Home Condition: Good Discharge Details Reason For Visit: Right knee DJD Admit Date/Time: 07/29/23 07:26 Admit Provider: Hari Posadas Attending Provider: Hari Posadas Primary Care Provider: Paty Canales Hospital Course Hospital Course: Val was admitted to the medical/surgical floor following the procedure. The surgery was tolerated well without any notable medical, surgical, or anesthetic complications but she had some dizziness and nausea with mobilization. Thus, she was kept for observation. This improved overnight with maintained vital signs. Mobilization began postoperatively. She was voiding spontaneously. Vitals were stable. Physical therapy worked with the patient and was cleared for discharge home. No acute medical issues. Pain was controlled on oral regimen. Home Meds and New Rx's Prescriptions: New celecoxib [Celebrex] 200 mg capsule 200 mg PO BID PRNQty: 60 0RF Rx Instructions: Take one tablet twice daily for pain and inflammation acetaminophen 500 mg tablet 1,000 mg PO Q8H PRN Qty: 90 0RF Rx Instructions: Take two tablets up to every 8 hours as needed for pain pantoprazole 40 mg tablet,delayed release (DR/EC) 40 mg PO DAILY Qty: 14 0RF dexamethasone 4 mg tablet 4 mg PO DAILY Qty: 2 0RF Rx Instructions: Take one tablet once daily for two days docusate sodium [Colace] 100 mg capsule 100 mg PO BID Qty: 30 0RF gabapentin 300 mg capsule 300 mg PO QHS Qty: 14 0RF Rx Instructions: Take one tablet at bedtime oxycodone 5 mg tablet 5 mg PO Q4H PRNQty: 18 0RF Rx Instructions: Take one tablet up to every 4 hours as needed for severe postoperative pain Continued alendronate 70 mg tablet 70 mg PO ONCE losartan [Cozaar] 50 mg Tablet 50 mg PO HS atorvastatin [Lipitor] 10 mg Tablet 10 mg PO QPM Rx Instructions: after dinner amlodipine [Norvasc] 5 mg Tablet 5 mg PO HS allopurinol 300 mg Tablet 300 mg PO DAILY metoprolol succinate 25 mg Tablet Extended Release 24 Hr 25 mg PO HS apixaban 2.5 mg Tablet 2.5 mg PO BID calcium carbonate-vitamin D3 [Calcium 500 With D] 500 mg-10 mcg (400 unit) Tablet 1 tab PO QDAY Centrum Silver Women 8 mg iron-400 mcg-300 mcg Tablet 1 tab PO QDAY polyethylene glycol 3350 17 gram Powder In Packet 17 g PO DAILY PRN PRN (Reason: Constipation) Qty: 0 0RF Discontinued acetaminophen 500 mg Tablet 1,000 mg PO Q8H Qty: 0 0RF Discharge Instructions Additional Instructions: Total Knee Discharge Instructions Activity: The most important activity is to walk and to work on gentle motion (both flexion and extension). You should try to take short walks a few times a day. It is important that when resting you work on keeping the knee straight. Avoid putting a pillow behind the knee as this will encourage flexion. Work on range of motion exercises as provided by Physical Therapy. - Start outpatient physical therapy within 2 weeks. - You should wear the KENNEY hose on both legs for 2 weeks. You may remove these at night. You may also use any compression sock in place of the KENNEY hose. - Utilize [employer] to review exercises, see videos on exercises and obtain basic information pertaining to your surgery and your recovery. Dressing: Remove the Patrick wrap by 2 days after your surgery and put on the KENNEY stocking given to you from the hospital. Keep the surgical dressing (underneath the PATRICK wrap) in place for at least one week. After the first week it may be removed and replaced with light gauze and tape or nothing. The wound and dressing may get wet after 3 days but avoid soaking the dressing or otherwise it will need to be changed. Many people prefer covering the dressing with cling wrap (saran wrap) to minimize it from getting soaked. If it gets wet, just pat dry. If it starts to peel off then it will need to be changed. Medications: - You should take Tylenol and anti-inflammatory Celebrex as your primary pain control medications. If the Celebrex is too expensive or not covered, please call the office for another alternative (Advil/Ibuprofen or Naproxen/Aleve) - You have been prescribed a stronger pain medication Oxycodone for breakthrough pain, take as needed as prescribed. - You have also been prescribed a stomach acid reduction agent Pantoprozole to help reduce stomach acid and reflux. - You have been prescribed Gabapentin to take at night for restlessness and nerve pain. - You will be taking your baseline anticoagulation - Apixaban for DVT prevention. You may resume this medication. - You have also been prescribed Decadron to take to control post-operative nausea and pain. You will start this tomorrow. - If you have constipation you should take Colace (which has been prescribed) or Miralax (which is available [id number]). It takes most people 3-4 days to have a bowel movement. You will resume your home medications but I would hold on taking Cozaar (Losartan). You currently take Amlodipine and Metoprolol for heart rate control as well as blood pressure. Your blood pressure has been relatively lower so I would hold the Losartan until your systolic blood pressures are above 140. You should discuss this with your PCP as well. I recommend taking your blood pressure twice a day at the same time and in the same way. If you find your systolic pressure less than 100, please call Dr. Posadas or your PCP. Follow-up: 2 weeks If you have any acute concerns or questions, please do not hesitate to contact the office at [phone]. You may contact Dr. Posadas with any questions after hours through the hospital at [phone] or on his cell phone at [phone]. Stand Alone Forms: Anesthesia Discharge InstVenecia, En.Nerve Block Instructions, Connie Corona (DSU) Referrals: Hari Posadas MD [ [facility] STAFF PHYSICIAN] - Activity:: Activity as Tolerated Equipment/Supplies:: Walker Diet:: As Tolerated Discharge Orders Discharge Orders: Discharge Order (Routine); Ordered 07/30/23 Ordered By: Hari Posadas DS: Summary Time Spent with Patient providing and/or coordinating discharge services: Less than 30 minutes Status at Discharge Functional status at discharge: uses cane/walker Overall status at discharge: patient is progressing back to baseline Mental Status: mental status grossly normal Speech and Movement: speech and movement normal Mood: congruent mood Affect: normal affect Exam Narrative Exam Narrative: Sitting up in the bed. NAD. AAOx3. RLE dressing c/d/i. +SLR/ADF/APF/EHL/FHL. SILT DP/SP/Tib. Psych Mental Status: mental status grossly normal Speech and Movement: speech and movement normal Mood: congruent mood Affect: normal affect DS: Data Vitals/I&O Vitals and I&O: Intake & Output 07/28/23 07/28/23 07/29/23 11:59 23:59 11:59 Weight 160 lb 15.987 oz 160 lb 15.987 oz PFSH All Active Problems (Updated 07/30/23 @ 08:13 by Oswald Arenas RN) History of total right knee replacement (Acute 07/29/23) Intertrochanteric fracture of right hip (Acute) Injury on 09/29/22 Repaired with IM nail on 09/30/22 CKD (chronic kidney disease) (Chronic) HLD (hyperlipidemia) (Acute) Essential hypertension (Acute) Medical History Closed left ankle fracture Fracture of left ankle Melanoma Basal cell carcinoma History of cardioversion Atrial fibrillation Surgical History History of left oophorectomy H/O: hysterectomy S/P bilateral breast lumpectomy Cataract extraction status, right eye Cataract extraction status, left eye Social History Smoking/Tobacco Use Status: Never Smoking risk assessment performed?: Yes Alcohol Intake: current Alcohol Intake frequency: holidays/special occasions only Drug use: Never Substance use type: does not use Housing: apartment Current gender identity: female Do you feel safe at home: Yes Do you feel safe in your relationship?: Yes Time Spent with Patient Time Spent with Patient: <45 minutes Time was spent: indepentently interpreting results, counseling the patient and care coordination
[2023-07-30] MEDS: Calcium 600mg/Vit D 200U TAB 1 TAB PO (08:49)
[2023-07-30] MEDS: Apixaban 2.5 MG TAB PO (08:49)
[2023-07-30] MEDS: Dexamethasone 4 MG TAB PO (08:49)
[2023-07-30] MEDS: Celecoxib 200 MG CAP PO (08:49)
[2023-07-30] MEDS: ceFAZolin 1 GM/50 ML BAG IVPB (08:53)
[2023-07-30] MEDS: Allopurinol 300 MG TAB PO (08:54)
[2023-07-30] MEDS: Normal Saline Flush 10 ML SYR IV (08:55)
--- NOTE | 2023-07-30 10:37 | CMDISCH_ITS ---
Date of service: 07/30/23 Time of Service: 10:38 LACE Index Scoring Tool Questions: Length of Stay (in days): 1 Was the patient admitted via the E.D.?: No E.D. Visits: 0 Answers: Total Score: 1 Risk of Readmission: Low Risk Care Management Discharge Plan Reason for Hospitalization: Right Knee DJD Discharge Plan: Val is discharged home via private vehicle with family. Pt will follow up with community providers and her discharge plan of care as i nstructed. Outpatient follow up with Ortho on 08/11/23 as scheduled and outpatient PT in 2 weeks. Patient/Family Education Needs: Review discharge instructions, limitations, m edications and plan to follow up with outpatient providers. Discuss ask me three. Services Needed at Discharge: Physical Therapy
[2023-07-30 11:23] VITALS: BP 124/77; PULSE 72; RESP 19; TEMP 35.9; O2SAT 98
--- NOTE | 2023-07-30 12:07 | PT.INIE ---
PT Notes Visit Reasons: Right knee DJD Physical Therapy Inpatient Initial Evaluation Date: 07/30/2023 Referring Doctor: EDUARDO Abraham PT Orders: PT CONSULT: S/P Ortho Surgery Precautions: WBAT on the R LE with AD. Patient Profile/Admitting Diagnosis: Silvia is an 82-year-old female with degenerative joint disease of the right knee and is status post right total knee arthroplasty on postoperative day 1 needing admission to med surg yesterday due to orthostatic hypotension and mild acute confusional state. PMHX: Medical History Atrial fibrillation Basal cell carcinoma Fracture of left ankle History of cardioversion Melanoma Surgical History Cataract extraction status, left eye Cataract extraction status, right eye H/O: hysterectomy History of left oophorectomy S/P bilateral breast lumpectomy Social History/Home Situation: Lives alone in a private home with 3 steps to enter with a rail on the right side going up. Daughter will be with patient for the first couple of days to ensure safety at home. Equipment Owned/DME: Standard walker Subjective: States that she is more confident about going home. Feels much better. Added that her blood pressure went down to as low as low 90s systolically last night, stabilized since then. All symptoms according to her have resolved. She is hoping to go home as soon as she is cleared to. Objective: General Observation: Seated on wheelchair. IV access through L UE. Mental Status: Oriented x 3 but word finding difficulty significantly less. Pain: 1/10 in the R knee ROM: Right Lower Extremity: Hip flexion WFL. Hip abduction WFL. Knee flexion 20 degrees to 90 degrees actively while seated on chair. Knee extension -20 degrees ankle dorsiflexion WFL. Ankle plantarflexion WFL. Left Lower Extremity: Hip flexion WFL. Hip abduction WFL. Knee flexion WFL. Ankle dorsiflexion WFL. Ankle plantarflexion WFL. Strength: Right Lower Extremity: Hip flexors 4/5. Hip abductors 4/5. Knee flexors 3-/5. Knee extensors 3-/5. Ankle dorsiflexors 5/5. Ankle plantarflexors 5/5. Left Lower Extremity:Hip flexors 5/5. Hip abductors 5/5. Knee flexors 5/5. Knee extensors 5/5. Ankle dorsiflexors 5/5. Ankle plantarflexors 5/5. Sensation: Intact as to pain and light pressure in bilateral lower extremities Bed Mobility/Transfers: Supine to sit stand by assist with moderate cueing provided to use B hands for support and to rise slowly Sit to stand stand by assist with moderate cueing provided to use B hands for support and to rise slowly Stand to sit stand by assist with moderate cueing provided to use B hands to control descent Gait: Facilitated safe and correct performance of 200 feet + 200 feet with stand by assist using the FWW with minimal cueing given only for safety. No wheelchair follow needed. Stairs: Guided patient through safe and correct navigation of 6 x 4 inch steps and 4 x 6 inch steps while holding onto 1 rail with 1 hand and using a single-point cane with the other hand with minimal cueing provided for movement sequence and overall safety. Balance: Static Sitting: Normal Dynamic Sitting: Normal Static Standing: Fair Dynamic Standing: Fair Special Tests: Mobility Limitations Standardized Measure [facility] 6 clicks Basic Mobility Inpatient Short Form: Raw Score: 23 CMS Score: 11% deficit Informed Consent/Education: Patient instructed in purpose of PT consult. Packet containing TKA exercise protocol has been given to patient. Education and training on initial set of exercises that can be done at home have been completed with patient. THERA ACT: Trained patient with correct performance of exercises below to maximize motor control, joint flexibility, soft tissue extensibility of the R knee musculature: Access Code: [email or web address] URL: [email or web address] Date: 07/29/2023 Prepared by: Mali Lay Exercises - Supine Quad Set - 1 x daily - 7 x weekly - 1 sets - 10 reps - 5 hold - Supine Heel Slide - 1 x daily - 7 x weekly - 1 sets - 10 reps - 5 hold - Supine Ankle Pumps - 1 x daily - 7 x weekly - 1 sets - 10 reps - 5 hold - Small Range Straight Leg Raise - 1 x daily - 7 x weekly - 1 sets - 10 reps - 5 hold - Seated December - 1 x daily - 7 x weekly - 1 sets - 10 reps - 5 hold ASSESSMENT: Orthostasis resolved. Cognitively much clearer and safer. Will require the use of a FWW for all mobility ADL performance to maximize independence and reduce fall risk. Patient presents with clinical signs and symptoms consistent with current/admitting diagnoses that have resulted to mobility limitations, gait instability, generalized weakness, and impairment of motor control as demonstrated by the following impairment level findings: 1. Decreased strength to right knee major muscle groups 2. Impaired standing balance 3. Limitation of joint range of motion in right knee Impairments are contributing to the following functional limitations: 1. Inability to safely ambulate without assistive device 2. Increase completion time for mobility ADL performance 3. Increased fall risk Patient is assessed as a 12198 moderate complexity based on the following: History: 82-year-old female with impairment level findings, functional limitations, and past medical history as indicated above Examination: Demonstrable impairment in strength, balance, and mobility level with underlying impairments and functional limitations as documented above Presentation: Evolving Decision Makin moderate complexity Goals: N/A. PT evaluation and 1-2 treatment sessions only for functional mobility training using recommended AD and for HEP instruction. Plan of Care/Treatment Plan: N/A. PT evaluation and 1-2 treatment session only for functional mobility training using recommended AD and for HEP instruction. DISCHARGE RECOMMENDATIONS: Home when medically cleared by orthopedic surgeon. Recommend outpatient PT services in order to optimize functional mobility outcomes and facilitate return to independent community ambulation without an assistive device. TREATMENT CODE/TIME: 00064 x 20 minutes for 1 unit, 58406 x 13 minutes for 3 units beginning at 12:07 PM. Thank you for the opportunity to participate in the care of this patient. Mali Lay PT, DPT, CLT [facility] [place], [place]
== END 2023-07-30 13:10 | disposition home or self-care (01) ==
LOC: SUR 13:27 → MS 07-30 08:12
PROVIDERS: Admitting Provider Student in an Organized Health Care Education/Training Program; PCP Family Medicine; Visit Provider Student in an Organized Health Care Education/Training Program
PROC: (CPT 27447; principal; 2023-07-29 09:30)
DX: M17.11 Unilateral primary osteoarthritis, right knee (principal); I48.91 Unspecified atrial fibrillation; Z79.01 Long term (current) use of anticoagulants
CPT/HCPCS: 20985; 27447; C1776; 64447; 64450; 76942; 96361; 96365; 96366; 96375; 97162; 97530; G0378; J0690; J1100; J1170; J2371; J2405; J2704; J8540

== ENCOUNTER 2023-08-11 11:45 | Outpatient (CLI) | payer MEDICARE, BC, OTHER, SELFPAY ==
--- NOTE | 2023-08-11 11:00 | DI.RAD_ITS ---
Exam(s) XR KNEE RT 1V XR STANDING ALIGNMENT EXAM: XR STANDING ALIGNMENT CLINICAL HISTORY: POST RIGHT TKR. TECHNIQUE: 2D digital imaging was performed. Standing AP views were performed from the pelvis throu gh the ankles. Lateral view right knee. COMPARISON: CR XR STANDING ALIGNMENT from 07/24/2023 CR XR KNEE RT 1V from 08/11/2023 FINDINGS: BONES: Stable appearance of hardware of the proximal right femur and lesser trochanter fracture. No change in fixation plate along left lateral malleolus. No acute fracture is present. No bony destruc tive lesion is seen. Leg length discrepancy: No significant overall leg length discrepancy. JOINTS: Knees: The patient is now status post right total knee arthroplasty. The alignment appears s atisfactory. Severe degenerative changes are again noted of the medial femoral tibial joint space of the right knee. The ankle joints show mild bilateral medial joint space narrowing. The hip joints show acetabular spurring. SOFT TISSUE: Normal. IMPRESSION: Severe degenerative changes of the medial femoral tibial joint space of the right knee. Right knee p rosthesis is unremarkable.. No significant leg length discrepancy. DATA REPOSITORY: RADIATION DOSE DELIVERED:
== END 2023-08-11 11:46 | disposition home or self-care (01) ==
LOC: DIORS 11:45
PROVIDERS: PCP Family Medicine; Referring Provider Family Medicine; Visit Provider Student in an Organized Health Care Education/Training Program
DX: Z96.651 Presence of right artificial knee joint (principal); Z47.1 Aftercare following joint replacement surgery
CPT/HCPCS: 73560; 77073

== ENCOUNTER → 2023-09-08 10:12 | Outpatient (BNVA) | payer MEDICARE, BC, OTHER, SELFPAY | PROVIDERS: PCP Family Medicine; Referring Provider Family Medicine; Visit Provider Student in an Organized Health Care Education/Training Program | DX: Z47.1 Aftercare following joint replacement surgery (principal); Z96.651 Presence of right artificial knee joint ==

== ENCOUNTER 2023-10-23 15:11 | Outpatient (CLI) | payer MEDICARE, BC, OTHER, SELFPAY | END 2023-10-23 15:12 | disposition home or self-care (01) | LOC: DIORS 15:11 | PROVIDERS: PCP Family Medicine; Referring Provider Family Medicine | DX: Z47.1 Aftercare following joint replacement surgery (principal); Z96.651 Presence of right artificial knee joint ==

== ENCOUNTER 2024-08-02 15:43 | Outpatient (CLI) | payer MEDICARE, BC, OTHER, SELFPAY ==
--- NOTE | 2024-08-02 11:00 | DI.RAD_ITS ---
Exam(s) XR KNEE RT 2V AP,LAT EXAM: XR KNEE RT 2V AP,LAT CLINICAL HISTORY: ANNUAL F/U R TKA. TECHNIQUE: 2D digital imaging was performed. Two images were obtained. AP and lateral views were ob tained. COMPARISON: CR XR STANDING ALIGNMENT from 08/11/2023 CR XR KNEE RT 1V from 08/11/2023 FINDINGS: BONES: There are stable post operative changes of a right total knee replacement present. No fractur e or dislocation. Enthesophytes are seen at the anterior patella. JOINTS: The orthopedic hardware is in good position. No evidence of hardware loosening. SOFT TISSUE: Dystrophic calcifications are seen in the soft tissues. IMPRESSION: Stable right total knee replacement. DATA REPOSITORY: RADIATION DOSE DELIVERED:
== END 2024-08-02 15:44 | disposition home or self-care (01) ==
LOC: DIORS 15:43
PROVIDERS: PCP Family Medicine; Referring Provider Family Medicine; Visit Provider Student in an Organized Health Care Education/Training Program
DX: Z47.1 Aftercare following joint replacement surgery (principal); Z96.651 Presence of right artificial knee joint
CPT/HCPCS: 99213; 73560

== ENCOUNTER 2025-02-25 09:46 | Outpatient (CLI) | payer MEDICARE, OTHER, BC, SELFPAY ==
--- NOTE | 2025-02-25 09:15 | DI.RAD_ITS ---
Exam(s) XR HIP LT COMPLETE AP PELVIS EXAM: XR HIP LT COMPLETE AP PELVIS CLINICAL HISTORY: LEFT HIP PAIN. TECHNIQUE: 2D digital imaging was performed. COMPARISON: CR XR HIP RT AP LAT ONLY from 12/02/2022 FINDINGS: Two views No evidence of acute pelvic nor hip fracture. Hardware in the right hip again noted across healed in tertrochanteric fracture site. The separate lesser trochanter fragment is again noted and appears un changed. There are no fractures in the opposite-left hip. Mild degenerative changes are noted in the left hip . No osseous lesions. Bone density is normal. Some degenerative changes are also noted symphysis p ubis. IMPRESSION: Mild degenerative changes in the left hip. Stable appearance of healed intertrochanteric fracture in the right hip. DATA REPOSITORY: RADIATION DOSE DELIVERED:
== END 2025-02-25 09:47 | disposition home or self-care (01) ==
LOC: DIORS 09:46
PROVIDERS: PCP Family Medicine; Referring Provider Family Medicine; Visit Provider Physician Assistant
DX: M16.12 Unilateral primary osteoarthritis, left hip
CPT/HCPCS: 20611; J1010; 73502

== ENCOUNTER → 2025-04-25 14:52 | Outpatient (BNVA) | payer MEDICARE, OTHER, BC, SELFPAY | PROVIDERS: PCP Family Medicine; Referring Provider Family Medicine; Visit Provider Student in an Organized Health Care Education/Training Program | DX: M16.12 Unilateral primary osteoarthritis, left hip (principal); M70.62 Trochanteric bursitis, left hip | CPT/HCPCS: 20610; J1010 ==

== ENCOUNTER 2025-06-30 04:07 | Outpatient (CLI) | payer MEDICARE, OTHER, BC, SELFPAY ==
--- NOTE | 2025-06-30 06:00 | DI.MRI_ITS ---
Exam(s) MR LUMBAR SPINE WO EXAM: MR LUMBAR SPINE WO CLINICAL HISTORY: PAIN,LUMBAR SPINAL STENOSIS,M48.061. TECHNIQUE: Multiplanar multisequence MRI of the Lumbar spine was performed. COMPARISON: No exams were available for comparison FINDINGS: Bones: The last intervertebral disc space is designated the L5/S1 level for the numbering purpose of this examination. There is mild old compression of the T12 vertebral body. There is disc space narrowing at T12-L1. There is disc desiccation at all levels of the lumbar spine. Mild anterolisthesis of L4 on L5 is noted. Osteophytes are seen at multiple levels of the lumbar spine. There is hypointense signal in the right sacral ala paralleling the sacroiliac joint suspicious for a insufficiency fracture. Cord: It is of normal size and signal intensity. T12-L1: No disc herniations or bulges are present. No central spinal canal or neural foraminal stenosis. L1-2: No disc herniations or bulges are present. No central spinal canal or neural foraminal stenosis. L2-3: There is a mild diffuse disc bulge. There are degenerative changes of the facets and hypertrophy of the ligamentum flavum. There is mild narrowing of the central spinal canal. There is [id number]-[id number]-[id number] bilateral neural foraminal stenosis. L3-4: There is a diffuse disc bulge. There are degenerative changes of the facets and ligamentum flavum hypertrophy. This results in severe central spinal canal stenosis. There is moderate right and severe left neural foraminal stenosis. L4-5: There is a diffuse disc bulge. There are hypertrophic changes of the facets and ligament flavum. These all contribute to cause severe central spinal canal stenosis. There is moderately severe bilateral neural foraminal stenosis. L5-S1: There is a diffuse disc bulge. There are hypertrophic changes of the facets and ligamentum flavum. These all contribute to cause moderately severe central spinal canal stenosis. There is marked bilateral neural foraminal stenosis, left greater than right. Soft tissues: The visualized SI joints and sacrum are well maintained. The paraspinal soft tissues are unremarkable. Visualized abdominal organs: There are simple bilateral renal cysts. No follow- up is recommended. There is a 6.4 x 4.4 cm cystic structure in the right pelvis. Its location suggest an ovarian origin. IMPRESSION: 1. Severe degenerative changes seen throughout the lumbar spine. 2. There is severe central spinal canal stenosis and significant bilateral neural foraminal stenosis most marked at L3-4 and L4-L5. 3. There is also moderately severe central spinal canal stenosis and marked bilateral neural foraminal stenosis at L5-S1. 4. 6.4 x 4.4 cm cystic structure incompletely imaged in the pelvis. This may be ovarian in origin. A CT scan of the pelvis with contrast is recommended for further characterization. Alternatively, a pelvic ultrasound may be performed. 5. Suspicious for a right sacral insufficiency fracture.. Unexpected findings DATA REPOSITORY:
--- NOTE | 2025-06-30 06:00 | DI.MRI_ITS ---
Exam(s) MR LOWER JOINT LT WO EXAM: MR LOWER JOINT LT WO CLINICAL HISTORY: PAIN,LT HIP OA, LT TROCHANTERIC BURSITIS,M70.62,M16.12 TECHNIQUE: Multiplanar multisequence MRI of left hip was performed COMPARISON: CR XR HIP LT COMPLETE AP PELVIS from 02/25/2025 FINDINGS: Bones: There is no evidence of a fracture or avascular necrosis. No significant joint effusion or labral injury is present. No bone marrow edema is seen. The SI joints and symphysis pubis are well maintained. There is artifact from an intramedullary loraine in the proximal right femur. Musculotendinous structures: There is hyperintense signal seen in both the left gluteus medius and gluteus minimus tendons at their insertion site consistent with partial tears. There is a small amount of fluid seen adjacent to the left greater trochanter. The anterior superior labrum is decreased in size and shows abnormal signal consistent with a tear. Soft tissues: There is a 6.1 x 5.8 cm cystic lesion in the right pelvis. IMPRESSION: 1. Left trochanteric bursitis with partial tears involving the gluteus medius and gluteus minimus tendons. 2. Findings of a superior left labral tear. 3. 6.1 x 5.8 cm right pelvic cystic structure. This may be ovarian in origin. Gynecologic consult is recommended. Pelvic ultrasound and or pelvic MRI should be considered for further characterization. Unexpected findings DATA REPOSITORY:
== END 2025-06-30 04:27 ==
LOC: DI 04:07
PROVIDERS: PCP Family Medicine; Visit Provider Student in an Organized Health Care Education/Training Program
DX: M48.061 Spinal stenosis, lumbar region without neurogenic claudication (principal); M70.62 Trochanteric bursitis, left hip
CPT/HCPCS: 73721; 72148

== ENCOUNTER → 2025-07-07 14:37 | Outpatient (BNVA) | payer MEDICARE, OTHER, BC, SELFPAY | PROVIDERS: PCP Family Medicine; Referring Provider Family Medicine; Visit Provider Student in an Organized Health Care Education/Training Program | DX: M70.62 Trochanteric bursitis, left hip (principal); M48.062 Spinal stenosis, lumbar region with neurogenic claudication | CPT/HCPCS: 99215 ==